=== PATIENT | female | born 1940 | race Caucasian/White ===

== ENCOUNTER → 2016-05-07 | Outpatient (CLI) | payer OTHER ==
[~2016-05-07] MED LIST: ALEN1TAB21 PO; AMB5 PO; AMLH550 PO; AMOX500C3 PO; ASPEC325 PO; BIOT1CAP8 PO; CLB200 PO; LEVO125T72 PO; MULT-506 PO; SIMV20TA2 PO; [UNRECOGNIZED DRUG - OTHER] PO
[2016-05-07 13:19] LABS: URINE APPEARANCE CLEAR (CLEAR); URINE BILIRUBIN NEG (NEG); URINE COLOR YELLOW; URINE EPITHELIAL CELL AUTO >30 /lpf (0-5); URINE NITRITE POS (NEG); URINE SPECIFIC GRAVITY 1.021 (1.000-1.030); UROBILINOGEN NEG (NEG)
[2016-05-07 13:33] LABS: MANUAL MICROSCOPIC REQUIRED? NO; REVIEW REQ? NO
== END | disposition home or self-care (01) ==
LOC: C.LAB1850 11:47
PROVIDERS: ATTEND Internal Medicine Infectious Disease
DX: R30.0 Dysuria (principal)

== ENCOUNTER → 2016-09-29 | Outpatient (CLI) | payer OTHER ==
--- NOTE | 2016-09-29 16:08 | MAMMOGRAPHY REPORT ---
BILATERAL DIGITAL SCREENING MAMMOGRAM WITH CAD: 09/29/2016 CLINICAL HISTORY: Routine screening. Patient has no complaints. TECHNIQUE: Current study was also evaluated with a Computer Aided Detection (CAD) system. Bilateral CC and MLO views were obtained. COMPARISON: Comparison is made to exams dated: 09/24/2015 mammogram, 09/18/2014 mammogram, 09/05/2013 ma mmogram, 09/04/2012 mammogram, 09/01/2011 mammogram, and 08/25/2010 mammogram - [facility] ter. BREAST COMPOSITION: The tissue of both breasts is almost entirely fatty. FINDINGS: No suspicious masses, calcifications, or areas of architectural distortion are noted in ei ther breast. There has been no significant interval change compared to prior exams. Postsurgical cassandra nges are again noted from bilateral reduction mammoplasty. Bilateral benign-appearing calcifications are not significantly changed. A biopsy marker clip is again noted within the left upper inner quad rant. IMPRESSION: ACR BI-RADS CATEGORY 2: BENIGN There is no mammographic evidence of malignancy. A 1 year screening mammogram is recommended. The pa tient will receive written notification of the results. Approximately 10% of breast cancers are not detected with mammography. A negative mammographic report should not delay biopsy if a clinically suggestive mass is present. Renee Wheat M.D. /:09/29/2016 13:27:05 Gang Punch Operator: Zuly KEVIN(Mac)(Julio)(BD), [facility] letter sent: Normal 1/2 BI-RADS Code: ACR BI-RADS Category 2: Benign
== END | disposition home or self-care (01) ==
LOC: C.MAMM 09:55
PROVIDERS: ATTEND Family Medicine
DX: Z12.31 Encounter for screening mammogram for malignant neoplasm of breast (principal)

== ENCOUNTER 2022-07-09 11:22 | Inpatient (IN) ==
[2022-07-09] MEDS ORDERED: MECLIZINE HCL 25 MG TAB PO STA (11:32)
[2022-07-09] MEDS ORDERED: ONDANSETRON INJ 2 MG/ML 2 ML VIAL IV STA (11:32)
--- NOTE | 2022-07-09 11:35 | Emergency Department Note ---
Impression & Plan UTI (urinary tract infection), uncomplicated, HTN (hypertension), Dizziness ED Provider Note NAME: AVERY MCKEON AGE: 81 SEX: F : 1940 ARRIVES VIA: Ambulance INFORMANT: Patient ED PROVIDER(S): Jim Buckley DO CHIEF COMPLAINT: dizzy HPI: Patient is an 81-year-old female with past medical history of hypertension who presents to the ER for dizziness. She notes she has an upset stomach on Tuesday. Yesterday she felt very dizzy and today she started vomiting. She notes the dizziness is worse with movement of her head and resolves when she stays still. She denies any belly pain. No headache. No change in vision. She did have cataract surgery performed on Tuesday. Denies any chest pain or shortness of breath. No dysuria, urgency, or frequency. She notes that she cannot walk because she felt so weak and dizzy so she called EMS. PAST MEDICAL HISTORY:See Below PAST SURGICAL HISTORY:See Below FAMILY HISTORY:See Below SOCIAL HISTORY:See Below HOME MEDICATIONS:See Below ALLERGIES:See Below VITALS:See Below PHYSICAL EXAMINATION: GENERAL: Sitting up in bed, alert, well appearing, well nourished, no distress, non-toxic EYE EXAM: normal conjunctiva. PERRL and EOM's intact. OROPHARYNX: no exudate, no erythema, lips, buccal mucosa, and tongue normal and mucous membranes are moist NECK: supple, no nuchal rigidity, no adenopathy, non-tender LUNGS: Clear to auscultation. Normal chest wall mechanics HEART: no murmurs, S1 normal and S2 normal ABDOMEN: abdomen soft, non-tender, normo-active bowel sounds, no masses, no rebound or guarding. UPPER EXTREMITIES: upper extremities are grossly normal. LOWER EXTREMITIES: No pitting edema. NEURO EXAM: Normal sensorium, cranial nerves II-XII intact, normal speech, no weakness of arms, no weakness of legs. No drift. Finger to nose intact. Gross sensation intact. MEDICAL DECISION MAKING: Patient is an 81-year-old female who presents ER for above-stated complaint. IV was established blood work was obtained. Labs show a leukocytosis of 13,000. No significant anemia. BMP with mild hypokalemia 3.2. Glucose slightly elevated at 165. LFTs bilirubin and troponin was negative. Lipase was clean. UA does show nitrates leuks whites and +4 bacteria. Patient was given IV Rocephin. She was given IV fluids. She was given Reglan as well. CT angios of the head and neck were negative. She denies any belly pain with the exception of nausea. Chest x-ray was clean. Patient was admitted to the hospitalist for further evaluation management treatment. Discussed with the hospitalist and care managers for further evaluation management treatment. Do favor that the dizziness is likely peripheral in nature and could be related to the urinary tract infection. Considered stone but she had no belly pain suggest this. Triage Nursing notes reviewed. Limited review of prior medical records performed Vital Signs: reviewed and remarkable for no significant abnormalities Differential diagnosis: Differential diagnosis includes etiologies such as benign positional vertigo, dehydration, hypovolemia, anemia, tumor, infection, hypoglycemia, electrolyte abnormalities, cardiac sources, intracerebral event, toxicologic, neurological, as well as others were entertained. ER treatment provided: See below Diagnostics interpreted by me include EKG and cardiac monitoring as listed below: -Cardiac Monitoring: An order was placed for continuous cardiac monitoring. The monitor shows a rate of 80 with sinus rhythm. -ECG: EKG was ordered but patient was transferred to the floor prior to being obtained in the ER. -Laboratory studies:Interpreted by me as stated above in MDM and shown below. Imaging studies: Xrays: As interpreted by me: Portable AP upright 1 view of the chest shows no focal infiltrate CTs show: CT angios of the head and neck were negative Consultation(s): As described in MDM Procedures:none Critical Care: None Past Med/Surg History Medical History (Updated 07/09/22 @ 16:01 by Jim Buckley DO) Asthma no inhalers currently d/t insurance issues. rarely has any problems. History of COVID-19 04/01/22 tested positive. loss of taste and smell, fatigue, headache, sore throat, cough> still has fatigue and the loss of taste altered loss of smell. 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) Sleep apnea does not wear a machine Surgical History (Updated 07/09/22 @ 14:25 by Holly Burton PA-C) H/O bilateral breast reduction surgery History of cataract surgery LEFT & Right spring 2022 History of hip replacement, total bilateral History of tonsillectomy S/P knee replacement left Family History Other Heart disease Lung cancer No family history of adverse response to anesthesia Social History Smoking Status: Never smoker Second Hand Exposure: No; Hx Alcohol Use: No Hx Substance Use: No Preferred Language: Welsh Communication Ability: Effective 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 Beliefs That Will Affect Care: None Current Living Situation: Alone Feels Safe at Home: Yes Assistive Devices: Glasses Allergies Allergies Allergy/AdvReac Type Severity Reaction Status Date / Time No Known Allergies Allergy Unknown Verified 07/07/22 06:14 Home Meds Home Medications Medication Instructions Recorded Confirmed amlodipine 5 mg tablet 5 mg PO QAM 06/23/22 07/09/22 biotin 1 mg tablet 1 mg PO QAM 06/23/22 07/09/22 hydrochlorothiazide 25 mg tablet 25 mg PO QAM 06/23/22 07/09/22 ibuprofen 200 mg-diphenhydramine 2 cap PO HS PRN Insomnia 06/23/22 07/09/22 HCl 25 mg capsule (Ibuprofen PM) levothyroxine 137 mcg tablet 137 mcg PO QAM 06/23/22 07/09/22 losartan 50 mg tablet 50 mg PO QAM 06/23/22 07/09/22 multivitamin 1 tab PO QAM 06/23/22 07/09/22 simvastatin 20 mg tablet 20 mg PO HS 06/23/22 07/09/22 vitamin C 500 mg-quercetin 250 1 cap PO QAM 06/23/22 07/09/22 mg-bioflavonoids, citrus 33 mg capsule (Quercetin Complex) ofloxacin 0.3 % eye drops 1 drp OPR QID 07/09/22 07/09/22 prednisolone acetate 1 % eye 1 drp QID 07/09/22 07/09/22 drops,suspension zolpidem 5 mg tablet 5 mg PO HS yes 07/09/22 07/09/22 Results & Data (ED) Vital Signs Vital Signs - 24 hr 07/09/22 11:27 07/09/22 11:53 07/09/22 12:03 Temperature 36.4 C L Temperature Source Oral Pulse Rate 63 65 Pulse Rate [Apical] 64 Pulse Rate from SpO2 Sensor Respiratory Rate 13 21 14 Respiratory Effort / Characteristics Non-Labored Spontaneous Non-Labored Spontaneous Respiratory Depth Normal Normal Blood Pressure 224/85 H Blood Pressure [Right Arm] 209/97 H Blood Pressure Mean 131 Blood Pressure Mean [Right Arm] 134 Pulse Oximetry 93 96 96 Oxygen Delivery Method Room Air Room Air Room Air Sepsis New/Unexplained Change in Mental Status N/A Sepsis Action Taken by Nursing No Action Required 07/09/22 12:22 07/09/22 12:34 07/09/22 13:17 Temperature Temperature Source Pulse Rate 68 85 86 Pulse Rate [Apical] Pulse Rate from SpO2 Sensor 87 Respiratory Rate 24 22 Respiratory Effort / Characteristics Respiratory Depth Blood Pressure 193/89 H 180/99 H Blood Pressure [Right Arm] Blood Pressure Mean 123 126 Blood Pressure Mean [Right Arm] Pulse Oximetry 96 97 Oxygen Delivery Method Room Air Room Air Sepsis New/Unexplained Change in Mental Status Sepsis Action Taken by Nursing 07/09/22 13:30 07/09/22 14:01 07/09/22 14:30 Temperature Temperature Source Pulse Rate 81 82 84 Pulse Rate [Apical] Pulse Rate from SpO2 Sensor 81 83 84 Respiratory Rate 20 19 22 Respiratory Effort / Characteristics Respiratory Depth Blood Pressure 180/90 H 173/108 H 184/95 H Blood Pressure [Right Arm] Blood Pressure Mean 120 129 124 Blood Pressure Mean [Right Arm] Pulse Oximetry 98 97 97 Oxygen Delivery Method Room Air Room Air Room Air Sepsis New/Unexplained Change in Mental Status Sepsis Action Taken by Nursing 07/09/22 15:00 07/09/22 15:30 07/09/22 16:00 Temperature Temperature Source Pulse Rate 79 77 81 Pulse Rate [Apical] Pulse Rate from SpO2 Sensor 79 77 81 Respiratory Rate 18 17 20 Respiratory Effort / Characteristics Respiratory Depth Blood Pressure 176/68 H 179/81 H 168/81 H Blood Pressure [Right Arm] Blood Pressure Mean 104 113 110 Blood Pressure Mean [Right Arm] Pulse Oximetry 93 95 96 Oxygen Delivery Method Room Air Room Air Room Air Sepsis New/Unexplained Change in Mental Status Sepsis Action Taken by Nursing Laboratory Data 07/09/22 11:34 07/09/22 11:34 Lab Results 07/09/22 07/09/22 07/09/22 Range/Units 11:34 11:34 12:51 WBC 13.44 H (4.8-10.8) K/ul RBC 4.61 (4.20-5.40) M/uL Hgb 14.9 (12.0-16.0) g/dl Hct 43.4 (37.0-47.0) % MCV 94.1 (80.0-100.0) fL MCH 32.3 (25.0-34.0) pg MCHC 34.3 (32.0-36.0) g/dL RDW Std Deviation 42.2 (36.4-46.3) fL RDW Coeff of Edson 12.1 (11.5-14.5) % Plt Count 167 (130-400) K/uL MPV 11.7 (9.4-12.4) fL Immature Gran % (Auto) 0.4 % Neut % (Auto) 84.3 % Lymph % (Auto) 10.1 % [place] % (Auto) 5.1 % Eos % (Auto) 0.0 % Baso % (Auto) 0.1 % Neut # (Auto) 11.31 H (1.40-6.50) K/uL Lymph # (Auto) 1.36 (1.2-3.4) K/uL [place] # (Auto) 0.69 H (0.11-0.59) K/uL Eos # (Auto) 0.00 (0-0.50) K/uL Baso # (Auto) 0.02 (0-0.2) K/uL Immature Gran # (Auto) 0.06 (0.01-0.20) K/uL Sodium 139 (136-145) mmol/L Potassium 3.2 L (3.5-5.1) mmol/L Chloride 101 (98-107) mmol/L Carbon Dioxide 24 (21-32) mmol/L Anion Gap 14 H (3-11) BUN 23 (6-23) mg/dl Creatinine 0.58 L (0.6-1.2) mg/dl Est Cr Clr Drug Dosing 94.2 ml/min Est GFR ( Amer) 98.8 ml/min Est GFR (Non-Af Amer) 85.2 ml/min BUN/Creatinine Ratio 39.7 H (10-20) Glucose 165 H (70-99(Fasting)) mg/dl Calcium 9.8 (8.6-10.3) mg/dl Total Bilirubin 0.6 (0.2-1.0) mg/dl AST 39 (13-39) U/L ALT 54 H (7-52) U/L Alkaline Phosphatase 62 (34-104) U/L Troponin I High Sens 11.5 (0-14) pg/ml Total Protein 7.5 (6.0-8.3) gm/dl Albumin 4.5 (3.4-5.0) gm/dl Globulin 3.0 (2.5-4.0) gm/dl Albumin/Globulin Ratio 1.5 (0.9-2) Lipase 20 (11-82) U/L Urine Color Yellow Urine Appearance Cloudy A (Clear) Urine pH 6.0 (4.5-7.5) Ur Specific [place] 1.029 (1.000-1.030) Urine Protein Trace H (Negative) Urine Glucose (UA) Negative (Negative) Urine Ketones 1+ H (Negative) Urine Blood Trace H (Negative) Urine Nitrite Positive A (Negative) Urine Bilirubin Negative (Negative) Urine Urobilinogen Negative (Negative) Ur Leukocyte Esterase 2+ H (Negative) Urine WBC (Auto) >30 H (0-5) /hpf Urine RBC (Auto) 5-10 H (0-4) /hpf U Hyaline Cast (Auto) 1-5 (0-5) /lpf U Epithel Cells (Auto) 10-20 H (0-5) /lpf Urine Bacteria (Auto) 4+ H (Negative) SARS-CoV-2, RNA, NAAT (NEGATIVE) 07/09/22 Range/Units 13:51 WBC (4.8-10.8) K/ul RBC (4.20-5.40) M/uL Hgb (12.0-16.0) g/dl Hct (37.0-47.0) % MCV (80.0-100.0) fL MCH (25.0-34.0) pg MCHC (32.0-36.0) g/dL RDW Std Deviation (36.4-46.3) fL RDW Coeff of Edson (11.5-14.5) % Plt Count (130-400) K/uL MPV (9.4-12.4) fL Immature Gran % (Auto) % Neut % (Auto) % Lymph % (Auto) % [place] % (Auto) % Eos % (Auto) % Baso % (Auto) % Neut # (Auto) (1.40-6.50) K/uL Lymph # (Auto) (1.2-3.4) K/uL [place] # (Auto) (0.11-0.59) K/uL Eos # (Auto) (0-0.50) K/uL Baso # (Auto) (0-0.2) K/uL Immature Gran # (Auto) (0.01-0.20) K/uL Sodium (136-145) mmol/L Potassium (3.5-5.1) mmol/L Chloride (98-107) mmol/L Carbon Dioxide (21-32) mmol/L Anion Gap (3-11) BUN (6-23) mg/dl Creatinine (0.6-1.2) mg/dl Est Cr Clr Drug Dosing ml/min Est GFR ( Amer) ml/min Est GFR (Non-Af Amer) ml/min BUN/Creatinine Ratio (10-20) Glucose (70-99(Fasting)) mg/dl Calcium (8.6-10.3) mg/dl Total Bilirubin (0.2-1.0) mg/dl AST (13-39) U/L ALT (7-52) U/L Alkaline Phosphatase (34-104) U/L Troponin I High Sens (0-14) pg/ml Total Protein (6.0-8.3) gm/dl Albumin (3.4-5.0) gm/dl Globulin (2.5-4.0) gm/dl Albumin/Globulin Ratio (0.9-2) Lipase (11-82) U/L Urine Color Urine Appearance (Clear) Urine pH (4.5-7.5) Ur Specific [place] (1.000-1.030) Urine Protein (Negative) Urine Glucose (UA) (Negative) Urine Ketones (Negative) Urine Blood (Negative) Urine Nitrite (Negative) Urine Bilirubin (Negative) Urine Urobilinogen (Negative) Ur Leukocyte Esterase (Negative) Urine WBC (Auto) (0-5) /hpf Urine RBC (Auto) (0-4) /hpf U Hyaline Cast (Auto) (0-5) /lpf U Epithel Cells (Auto) (0-5) /lpf Urine Bacteria (Auto) (Negative) SARS-CoV-2, RNA, NAAT NEGATIVE (NEGATIVE) Administered Medications Discontinued Medications Amlodipine Besylate (Amlodipine Besylate 5 Mg Tab) 5 mg PO NOW ONE Stop: 07/09/22 14:01 Last Admin: 07/09/22 14:07 Dose: 5 mg Documented By: RAMON Hydralazine HCl (Hydralazine Hcl 20 Mg/Ml Vial) 10 mg IV NOW STA Stop: 07/09/22 12:08 Last Admin: 07/09/22 12:13 Dose: 10 mg Documented By: MIGUEL Hydrochlorothiazide (Hydrochlorothiazide 25 Mg Tab) 25 mg PO NOW STA Stop: 07/09/22 13:50 Last Admin: 07/09/22 14:07 Dose: 25 mg Documented By: RAMON Ceftriaxone Sodium (Rocephin) 2,000 mg in 70 mls @ 140 mls/hr IV NOW STA Stop: 07/09/22 13:48 Last Infusion: 07/09/22 14:52 Dose: 0 mls/hr Documented By: Admin: 07/09/22 13:51 Dose: 140 mls/hr Documented By: RAMON Ioversol (Optiray 320 500ml) 102 ml IV ONCE ONE Stop: 07/09/22 12:32 Last Admin: 07/09/22 12:32 Dose: 102 ml Documented By: ABHI Losartan Potassium (Losartan Potassium 50 Mg Tab) 50 mg PO ONE ONE Stop: 07/09/22 14:01 Last Admin: 07/09/22 14:07 Dose: 50 mg Documented By: RAMON Meclizine HCl (Meclizine Hcl 25 Mg Tab) 25 mg PO NOW STA Stop: 07/09/22 11:33 Last Admin: 07/09/22 11:49 Dose: 25 mg Documented By: RMAON Metoclopramide HCl (Metoclopramide Hcl Inj 5 Mg/Ml 2 Ml Vial) 10 mg IV NOW STA Stop: 07/09/22 13:26 Last Admin: 07/09/22 13:52 Dose: 10 mg Documented By: RAMON Ondansetron HCl (Ondansetron Inj 2 Mg/Ml 2 Ml Vial) 4 mg IV NOW STA Stop: 07/09/22 11:33 Last Admin: 07/09/22 11:49 Dose: 4 mg Documented By: RAMON Potassium Chloride (Potassium Chloride Crtab 20 Meq Tabcr) 40 meq PO NOW STA Stop: 07/09/22 13:53 Last Admin: 07/09/22 14:07 Dose: 40 meq Documented By: [facility] Imaging Data Radiologist's Impression: Neck CTA 07/09/22 11:32 CT angio neck with con, CT angio head wo/w CLINICAL HISTORY: dizzy TECHNIQUE: Contiguous axial CT images of the head were acquired from the base of the skull to the vertex without intravenous contrast administration. CT angiography of the head and neck was performed following intravenous administration of iodinated contrast. Coronal and sagittal MIPS were obtained from the axial data set and were submitted for review. Automated dose lowering techniques and/or adjustment according to patient size were utilized for this examination. All measurements were calculated based on NASCET criteria. CT DOSE: 1264.08 mGy.cm Comparison: None available at the time of this dictation. FINDINGS: CT head: There is no acute intracranial hemorrhage or evidence of acute territorial infarction. No shift of the midline structures, mass effect, or extra-axial abnormalities are shown. Mucous retention cyst is in the left maxillary sinus. Lungs and soft tissues are unremarkable. CTA Neck: Direct origin of the left vertebral artery from the aortic arch is seen. There is no significant atherosclerotic plaque in the aortic arch or the origins of the innominate, left common carotid, and left subclavian arteries. The common carotid, external carotid, cervical segments of the internal carotid arteries, and the cervical segments of the vertebral arteries are patent without hemodynamically significant stenosis. The right vertebral artery is dominant. CTA Head: The anterior and posterior cerebral circulations are patent. origin of the right posterior cerebral artery is seen. IMPRESSION: 1. No acute intracranial hemorrhage, evidence of acute territorial infarction, or other acute intracranial disease process. 2. No occlusion, hemodynamically significant stenosis, or dissection in the alisa or cervical arteries. 3. No occlusion, hemodynamically significant stenosis, aneurysm, dissection, or arteriovenous malformation in the major intracranial arteries. Assessment of stenosis of the internal carotid arteries is based on NASCET criteria. ACT 112: Negative or not required by law. Electronically signed by: Luis Wynn M.D. 07/09/2022 12:45 PM Head CTA 07/09/22 11:42 CT angio neck with con, CT angio head wo/w CLINICAL HISTORY: dizzy TECHNIQUE: Contiguous axial CT images of the head were acquired from the base of the skull to the vertex without intravenous contrast administration. CT angiography of the head and neck was performed following intravenous administration of iodinated contrast. Coronal and sagittal MIPS were obtained from the axial data set and were submitted for review. Automated dose lowering techniques and/or adjustment according to patient size were utilized for this examination. All measurements were calculated based on NASCET criteria. CT DOSE: 1264.08 mGy.cm Comparison: None available at the time of this dictation. FINDINGS: CT head: There is no acute intracranial hemorrhage or evidence of acute ter ritorial infarction. No shift of the midline structures, mass effect, or extra- axial abnormalities are shown. Mucous retention cyst is in the left maxillary sinus. Lungs and soft tissues are unremarkable. CTA Neck: Direct origin of the left vertebral artery from the aortic arch is seen. There is no significant atherosclerotic plaque in the aortic arch or the origins of the innominate, left common carotid, and left subclavian arteries. The common carotid, external carotid, cervical segments of the internal carotid arteries, and the cervical segments of the vertebral arteries are patent without hemodynamically significant stenosis. The right vertebral artery is dominant. CTA Head: The anterior and posterior cerebral circulations are patent. origin of the right posterior cerebral artery is seen. IMPRESSION: 1. No acute intracranial hemorrhage, evidence of acute territorial infarction, or other acute intracranial disease process. 2. No occlusion, hemodynamically significant stenosis, or dissection in the major cervical arteries. 3. No occlusion, hemodynamically significant stenosis, aneurysm, dissection, or arteriovenous malformation in the major intracranial arteries. Assessment of stenosis of the internal carotid arteries is based on NASCET criteria. ACT 112: Negative or not required by law. Electronically signed by: Luis Wynn M.D. 07/09/2022 12:45 PM Chest X-Ray 07/09/22 12:48 XR chest 1V portable CLINICAL HISTORY: dizzy TECHNIQUE: Single frontal radiograph of the chest was obtained. Comparison: Comparison is made to chest radiograph 11/30/2013 FINDINGS: Exam is limited by underpenetration. Cardiomegaly is noted. The aortic arch is calcified. The lungs are clear. No evidence of pleural effusion or pneumothorax. IMPRESSION: No acute chest disease. ACT 112: Negative or not required by law. Electronically signed by: Luis Wynn M.D. 07/09/2022 1:13 PM Discharge Plan Visit Data Chief Complaint: Illness Stated Complaint: WEAKNESS, NAUSEA, VOMITING, UNABLE TO AMBULATE ED Provider: Jim Buckley Discharge Problem: UTI (urinary tract infection), uncomplicated, HTN (hypertension), Dizziness Discharge Instructions Interventions: ED Discharge Assessment Last Done: 07/09/22 16:10 Forms Stand Alone Forms: My [facility] Prescriptions Prescriptions: No Action losartan 50 mg Tablet 50 mg PO QAM levothyroxine 137 mcg Tablet 137 mcg PO QAM amlodipine 5 mg Tablet 5 mg PO QAM simvastatin 20 mg Tablet 20 mg PO HS hydrochlorothiazide 25 mg Tablet 25 mg PO QAM biotin 1 mg Tablet 1 mg PO QAM Ibuprofen PM 200-25 mg Capsule 2 cap PO HS PRN (Reason: Insomnia) multivitamin Tablet 1 tab PO QAM Quercetin Complex 500-250-33 mg Capsule 1 cap PO QAM zolpidem 5 mg tablet 5 mg PO HS MDD insomnia ofloxacin 0.3 % drops 1 drp OPR QID prednisolone acetate 1 % drops,suspension 1 drp QID Referrals Referrals: Joseph Iqbal MD [Primary Care Provider] -
[2022-07-09 11:48] LABS: Basophils # (auto) 0.02 K/uL (0-0.2); Basophils % (auto) 0.1 %; Hematocrit (blood only) 43.4 % (37.0-47.0); Hemoglobin 14.9 g/dl (12.0-16.0); Immature Granulocytes # (auto) 0.06 K/uL (0.01-0.20); Immature Granulocytes % (auto) 0.4 %; Lymphocytes # (auto) 1.36 K/uL (1.2-3.4); Lymphocytes % (auto) 10.1 %; Mean Corpuscular Hemoglobin 32.3 pg (25.0-34.0); Mean Corpuscular Hgb Conc 34.3 g/dL (32.0-36.0); Mean Corpuscular Volume 94.1 fL (80.0-100.0); Mean Platelet Volume 11.7 fL (9.4-12.4); Monocytes # (auto) 0.69 K/uL (0.11-0.59); Monocytes % (auto) 5.1 %; Neutrophils # (auto) 11.31 K/uL (1.40-6.50); Neutrophils % (auto) 84.3 %; Platelet Count 167 K/uL (130-400); RDW Coefficient of Variation 12.1 % (11.5-14.5); RDW Standard Deviation 42.2 fL (36.4-46.3); Red Blood Count 4.61 M/uL (4.20-5.40); White Blood Count 13.44 K/ul (4.8-10.8)
[2022-07-09 12:03] LABS: Albumin Globulin Ratio 1.5 (0.9-2); Albumin Level 4.5 gm/dl (3.4-5.0); BUN Creatinine Ratio 39.7 (10-20); Bilirubin,Total 0.6 mg/dl (0.2-1.0); Calcium 9.8 mg/dl (8.6-10.3); Creatinine Clr Calc Pharmacy 94.2 ml/min; Est GFR (African American) 98.8 ml/min; Est GFR (Non-African American) 85.2 ml/min; Potassium 3.2 mmol/L (3.5-5.1); Total Protein 7.5 gm/dl (6.0-8.3)
[2022-07-09] MEDS ORDERED: hydrALAZINE HCL 20 MG/ML VIAL IV STA (12:07)
[2022-07-09] MEDS ORDERED: OPTIRAY 320 500ml IV ONE (12:31)
--- NOTE | 2022-07-09 12:46 | CT Scan Report ---
CT angio neck with con, CT angio head wo/w CLINICAL HISTORY: dizzy TECHNIQUE: Contiguous axial CT images of the head were acquired from the base of the skull to the boaz juan manuel without intravenous contrast administration. CT angiography of the head and neck was performed f ollowing intravenous administration of iodinated contrast. Coronal and sagittal MIPS were obtained fr om the axial data set and were submitted for review. Automated dose lowering techniques and/or adjus tment according to patient size were utilized for this examination. All measurements were calculated based on NASCET criteria. CT DOSE: 1264.08 mGy.cm Comparison: None available at the time of this dictation. FINDINGS: CT head: There is no acute intracranial hemorrhage or evidence of acute territorial infarction. No sh ift of the midline structures, mass effect, or extra-axial abnormalities are shown. Mucous retention cyst is in the left maxillary sinus. Lungs and soft tissues are unremarkable. CTA Neck: Direct origin of the left vertebral artery from the aortic arch is seen. There is no signi ficant atherosclerotic plaque in the aortic arch or the origins of the innominate, left common caroti d, and left subclavian arteries. The common carotid, external carotid, cervical segments of the inte rnal carotid arteries, and the cervical segments of the vertebral arteries are patent without hemodyn amically significant stenosis. The right vertebral artery is dominant. CTA Head: The anterior and posterior cerebral circulations are patent. origin of the right pos terior cerebral artery is seen. IMPRESSION: 1. No acute intracranial hemorrhage, evidence of acute territorial infarction, or other acute intrac ranial disease process. 2. No occlusion, hemodynamically significant stenosis, or dissection in the major cervical arteries. 3. No occlusion, hemodynamically significant stenosis, aneurysm, dissection, or arteriovenous malfor mation in the major intracranial arteries. Assessment of stenosis of the internal carotid arteries is based on NASCET criteria. ACT 112: Negative or not required by law. Electronically signed by: Luis Wynn M.D. 07/09/2022 12:45 PM
[2022-07-09 13:10] LABS: Appearance Urine Cloudy (Clear); Bacteria Urine Automated 4+ (Negative); Bilirubin Urine Negative (Negative); Blood Urine Trace (Negative); Color Urine Yellow; Glucose Urine UA Negative (Negative); Ketones Urine 1+ (Negative); Leukocyte Esterase Urine 2+ (Negative); Nitrite Urine Positive (Negative); Protein Urine Trace (Negative); Specific Gravity Urine 1.029 (1.000-1.030); Urobilinogen Urine Negative (Negative); WBC Urine Automated >30 /hpf (0-5)
--- NOTE | 2022-07-09 13:14 | XRay Report ---
XR chest 1V portable CLINICAL HISTORY: dizzy TECHNIQUE: Single frontal radiograph of the chest was obtained. Comparison: Comparison is made to chest radiograph 11/30/2013 FINDINGS: Exam is limited by underpenetration. Cardiomegaly is noted. The aortic arch is calcified. The lungs a re clear. No evidence of pleural effusion or pneumothorax. IMPRESSION: No acute chest disease. ACT 112: Negative or not required by law. Electronically signed by: Luis Wynn M.D. 07/09/2022 1:13 PM
[2022-07-09] MEDS ORDERED: cefTRIAXone SODIUM 2,000 MG/70 ML BAG IV STA (13:19)
[2022-07-09 13:25] LABS: Troponin I High Sensitivity 11.5 pg/ml (0-14)
[2022-07-09] MEDS ORDERED: METOCLOPRAMIDE HCL INJ 5 MG/ML 2 ML VIAL IV STA (13:25)
--- NOTE | 2022-07-09 13:36 | History & Physical Report ---
Date of Service July 09, 2022 Assessment & Plan (1) Hypertensive urgency: (2) Dizziness: Plan: This is an 81-year-old female with PMH of hypertension, insomnia, prediabetes, hypothyroidism, hyperlipidemia and LEON who presents with nausea and dizziness x3 days. Starting on Tuesday, patient felt nauseated and generally weak as well as dizziness and was found to have hypertensive urgency and UTI. Initial BP 224/85 in setting of missed PO meds, ongoing N/V at home. Generalized weakness only; no focal weakness, speech or swallowing issues CTA head/neck without acute evidence of 1. No acute intracranial hemorrhage, evidence of acute territorial infarction, or other acute intracranial disease process. 2. No occlusion, hemodynamically significant stenosis, or dissection in the major cervical arteries. 3. No occlusion, hemodynamically significant stenosis, aneurysm, dissection, or arteriovenous malformation in the major intracranial arteries. BP improving with 10mg IV hydralazine given in ED, also given missed AM amlodipine, hctz and losartain with improvement to 180/90 Continue to monitor BP closely (3) UTI (urinary tract infection), uncomplicated: Plan: Generalized weakness and nausea, increased urinary frequency. Continue empiric Rocephin. Follow urine culture (4) Hypokalemia: Plan: K 3.2 initially, replaced. Will repeat this evening since hctz given (5) History of cataract surgery: Plan: L cataract last week, R 2 day ago. Continue eye drops QID (6) Hypothyroidism: Plan: Continue levothyroxine (7) Hyperlipidemia: Plan: Continue statin (8) Sleep apnea: Plan: Does not use CPAP at home DVT Ppx: SQ lovenox Code status: FULL PCP: Farida Dispo: Admitted to PCU Patient seen in collaboration with Dr. Díaz. Please see addendum. I spent a total of 75 minutes coordinating, documenting, and providing care for this patient excluding time spent in the performance of separately billed services. History of Present Illness Chief Complaint: nauseous Primary Care Provider: Joseph Iqbal MD This is an 81-year-old female with PMH of hypertension, insomnia, prediabetes, hypothyroidism, hyperlipidemia and LEON who presents with nausea and dizziness x3 days. Starting on Tuesday, patient felt nauseated and generally weak as well as dizziness. Had R cataract surgery Wednesday AM and felt the same. Vomiting last evening multiple times and when she stands up the room is spinning, which is new for her. Vomited food contents, no blood. No fever, chills, CP, SOB, abdominal pain, diarrhea or constipation. Decreased PO intake 2/2 nausea. No difficulty urinating but more frequent, dysuria or hematuria. Has not taken home medications since yesterday morning. Is taking 2 eye drops for recent cataract surgeries (R 2 days ago and L last week). Allergies Allergy/AdvReac Type Severity Reaction Status Date / Time No Known Allergies Allergy Unknown Verified 07/07/22 06:14 Home Medications Medication Instructions Recorded Confirmed Type amlodipine 5 mg tablet 5 mg PO QAM 06/23/22 07/09/22 History biotin 1 mg tablet 1 mg PO QAM 06/23/22 07/09/22 History hydrochlorothiazide 25 mg tablet 25 mg PO QAM 06/23/22 07/09/22 History ibuprofen 200 mg-diphenhydramine 2 cap PO HS PRN Insomnia 06/23/22 07/09/22 History HCl 25 mg capsule (Ibuprofen PM) levothyroxine 137 mcg tablet 137 mcg PO QAM 06/23/22 07/09/22 History losartan 50 mg tablet 50 mg PO QAM 06/23/22 07/09/22 History multivitamin 1 tab PO QAM 06/23/22 07/09/22 History simvastatin 20 mg tablet 20 mg PO HS 06/23/22 07/09/22 History vitamin C 500 mg-quercetin 250 1 cap PO QAM 06/23/22 07/09/22 History mg-bioflavonoids, citrus 33 mg capsule (Quercetin Complex) ofloxacin 0.3 % eye drops 1 drp OPR QID 07/09/22 07/09/22 History prednisolone acetate 1 % eye 1 drp QID 07/09/22 07/09/22 History drops,suspension zolpidem 5 mg tablet 5 mg PO HS yes 07/09/22 07/09/22 History Past Med/Surg History Medical History (Updated 07/09/22 @ 16:01 by Jim Buckley DO) Asthma no inhalers currently d/t insurance issues. rarely has any problems. History of COVID-19 04/01/22 tested positive. loss of taste and smell, fatigue, headache, sore throat, cough> still has fatigue and the loss of taste altered loss of smell. 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) Sleep apnea does not wear a machine Surgical History (Updated 07/09/22 @ 14:25 by Holly Burton PA-C) H/O bilateral breast reduction surgery History of cataract surgery LEFT & Right spring 2022 History of hip replacement, total bilateral History of tonsillectomy S/P knee replacement left Family History Other Heart disease Lung cancer No family history of adverse response to anesthesia Social History Smoking Status: Never smoker Second Hand Exposure: No; Hx Alcohol Use: No Hx Substance Use: No Preferred Language: [place] Communication Ability: Effective 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 Physical Exam Physical Exam: Please see Dr. Díaz's addendum for physical exam. Results & Data Results & Data Vital Signs (Past 12 Hours) Vital Signs Temp Pulse Pulse Resp BP BP Pulse Ox 07/09/22 12:22 68 07/09/22 12:03 64 14 209/97 H 96 07/09/22 11:53 65 21 96 07/09/22 11:27 36.4 C L 63 13 224/85 H 93 O2 Del Method 07/09/22 12:22 07/09/22 12:03 Room Air 07/09/22 11:53 Room Air 07/09/22 11:27 Room Air Laboratory Results Short CBC 07/09/22 Range/Units 11:34 WBC 13.44 H (4.8-10.8) K/ul Hgb 14.9 (12.0-16.0) g/dl Hct 43.4 (37.0-47.0) % Plt Count 167 (130-400) K/uL BMP 07/09/22 11:34 Sodium 139 Potassium 3.2 L Chloride 101 Carbon Dioxide 24 BUN 23 Creatinine 0.58 L Glucose 165 H Calcium 9.8 Liver Function 07/09/22 Range/Units 11:34 Total Bilirubin 0.6 (0.2-1.0) mg/dl AST 39 (13-39) U/L ALT 54 H (7-52) U/L Alkaline Phosphatase 62 (34-104) U/L Albumin 4.5 (3.4-5.0) gm/dl Urine 07/09/22 Range/Units 12:51 Urine Color Yellow Urine Appearance Cloudy A (Clear) Urine pH 6.0 (4.5-7.5) Ur Specific [place] 1.029 (1.000-1.030) Urine Protein Trace H (Negative) Urine Glucose (UA) Negative (Negative) Diagnostic Findings Neck CTA 07/09/22 11:32 CT angio neck with con, CT angio head wo/w CLINICAL HISTORY: dizzy TECHNIQUE: Contiguous axial CT images of the head were acquired from the base of the skull to the vertex without intravenous contrast administration. CT angiography of the head and neck was performed following intravenous administration of iodinated contrast. Coronal and sagittal MIPS were obtained from the axial data set and were submitted for review. Automated dose lowering techniques and/or adjustment according to patient size were utilized for this examination. All measurements were calculated based on NASCET criteria. CT DOSE: 1264.08 mGy.cm Comparison: None available at the time of this dictation. FINDINGS: CT head: There is no acute intracranial hemorrhage or evidence of acute territorial infarction. No shift of the midline structures, mass effect, or extra-axial abnormalities are shown. Mucous retention cyst is in the left maxillary sinus. Lungs and soft tissues are unremarkable. CTA Neck: Direct origin of the left vertebral artery from the aortic arch is seen. There is no significant atherosclerotic plaque in the aortic arch or the origins of the innominate, left common carotid, and left subclavian arteries. The common carotid, external carotid, cervical segments of the internal carotid arteries, and the cervical segments of the vertebral arteries are patent without hemodynamically significant stenosis. The right vertebral artery is dominant. CTA Head: The anterior and posterior cerebral circulations are patent. origin of the right posterior cerebral artery is seen. IMPRESSION: 1. No acute intracranial hemorrhage, evidence of acute territorial infarction, or other acute intracranial disease process. 2. No occlusion, hemodynamically significant stenosis, or dissection in the major cervical arteries. 3. No occlusion, hemodynamically significant stenosis, aneurysm, dissection, or arteriovenous malformation in the major intracranial arteries. Assessment of stenosis of the internal carotid arteries is based on NASCET criteria. ACT 112: Negative or not required by law. Electronically signed by: Luis Wynn M.D. 07/09/2022 12:45 PM Head CTA 07/09/22 11:42 CT angio neck with con, CT angio head wo/w CLINICAL HISTORY: dizzy TECHNIQUE: Contiguous axial CT images of the head were acquired from the base of the skull to the vertex without intravenous contrast administration. CT angiography of the head and neck was performed following intravenous administration of iodinated contrast. Coronal and sagittal MIPS were obtained from the axial data set and were submitted for review. Automated dose lowering techniques and/or adjustment according to patient size were utilized for this examination. All measurements were calculated based on NASCET criteria. CT DOSE: 1264.08 mGy.cm Comparison: None available at the time of this dictation. FINDINGS: CT head: There is no acute intracranial hemorrhage or evidence of acute territorial infarction. No shift of the midline structures, mass effect, or extra-axial abnormalities are shown. Mucous retention cyst is in the left maxillary sinus. Lungs and soft tissues are unremarkable. CTA Neck: Direct origin of the left vertebral artery from the aortic arch is seen. There is no significant atherosclerotic plaque in the aortic arch or the origins of the innominate, left common carotid, and left subclavian arteries. The common carotid, external carotid, cervical segments of the internal carotid arteries, and the cervical segments of the vertebral arteries are patent without hemodynamically significant stenosis. The right vertebral artery is dominant. CTA Head: The anterior and posterior cerebral circulations are patent. origin of the right posterior cerebral artery is seen. IMPRESSION: 1. No acute intracranial hemorrhage, evidence of acute territorial infarction, or other acute intracranial disease process. 2. No occlusion, hemodynamically significant stenosis, or dissection in the major cervical arteries. 3. No occlusion, hemodynamically significant stenosis, aneurysm, dissection, or arteriovenous malformation in the major intracranial arteries. Assessment of stenosis of the internal carotid arteries is based on NASCET criteria. ACT 112: Negative or not required by law. Electronically signed by: Luis Wynn M.D. 07/09/2022 12:45 PM Chest X-Ray 07/09/22 12:48 XR chest 1V portable CLINICAL HISTORY: dizzy TECHNIQUE: Single frontal radiograph of the chest was obtained. Comparison: Comparison is made to chest radiograph 11/30/2013 FINDINGS: Exam is limited by underpenetration. Cardiomegaly is noted. The aortic arch is calcified. The lungs are clear. No evidence of pleural effusion or pneumothorax. IMPRESSION: No acute chest disease. ACT 112: Negative or not required by law. Electronically signed by: Luis Wynn M.D. 07/09/2022 1:13 PM Supervising Physician Co-Signing Physician Notes History and physical exam performed by me. History notable for 81-year-old woman with hypertension, hypothyroidism who presents with generalized weakness, dizziness, nausea and vomiting. Reports that she has been feeling weak for the past 4 days. Had left eye cataract surgery last week and right cataract surgery 2 days ago. Has had anorexia. Had nausea and vomiting episodes yesterday. Was so weak that she could not more hence presentation to the hospital today. Also reports urinary frequency on review of systems. On exam, General: Obese woman, no acute distress Eyes: PERRL, conjunctivae normal, not pale, anicteric sclerae, EOM intact bilaterally ENMT: External ear and nose normal, oropharynx normal Respiratory: Normal respiratory effort, no respiratory distress, lungs clear to auscultation, no crackles and no wheezes Cardiovascular: RRR S1 S2 Gastrointestinal (Abdomen): Abdomen is not distended, soft, non-tender to palpation, no guarding, no palpable hepatosplenomegaly, normal bowel sounds Musculoskeletal: +trace ankle edema Genitourinary: No CVA tenderness Neurologic: Alert and oriented x 3, No focal weakness, sensation grossly intact Psychiatric: Euthymic affect Labs notable for WBC of 13,000, potassium of 3.2. UA was positive for nitrite, trace blood, leukocyte esterase and WBC more than 30. CT angio head and neck did not show any acute abnormalities, hemodynamically significant occlusion or stenosis Hypertensive urgency. Urinary tract infection. Patient's blood pressure already improving with hydralazine IV in ER and resumption of home p.o. meds. We will continue home amlodipine, losartan and hydrochlorothiazide. Replete hypokalemia and recheck potassium this evening. Continue ceftriaxone Follow-up urine culture PT/OT evaluation. Agree with other plans as detailed by Holly Valdez PA-C
[2022-07-09] MEDS ORDERED: hydroCHLOROthiazide 25 MG TAB PO STA (13:49)
[2022-07-09] MEDS ORDERED: POTASSIUM CHLORIDE CRTAB 20 MEQ TABCR PO STA (13:52)
[2022-07-09] MEDS ORDERED: LOSARTAN POTASSIUM 50 MG TAB PO ONE (14:00)
[2022-07-09] MEDS ORDERED: amLODIPine BESYLATE 5 MG TAB PO ONE (14:00)
[2022-07-09] MEDS ORDERED: ACETAMINOPHEN 325 MG TAB PO PRN (16:51)
[2022-07-09] MEDS ORDERED: POLYETHYLENE (MIRALAX) 17 GM PACK PO PRN (16:51)
[2022-07-09] MEDS ORDERED: diphenhydrAMINE Capsule 25 MG CAP PO PRN (17:02)
[2022-07-09] MEDS ORDERED: IBUPROFEN 200 MG TAB PO PRN (17:03)
[2022-07-09] MEDS: ENOXAPARIN INJ 40 MG/0.4 ML SYR SQ SCH (17:12)
[2022-07-09] MEDS: ONDANSETRON INJ 2 MG/ML 2 ML VIAL IV PRN (17:12)
[2022-07-09] MEDS: prednisoLONE acetate 1% OP SUSP 5 ML BTL OPB SCH ×2 (17:12→20:07)
[2022-07-09] MEDS: OFLOXACIN 0.3% 75 DROPS/5 ML BTL OPR SCH ×2 (17:12→20:06)
[2022-07-09] MEDS: SIMVASTATIN 20 MG TAB PO SCH (20:06)
[2022-07-09 20:28] LABS: Magnesium 1.9 mg/dl (1.7-2.4); Potassium 3.4 mmol/L (3.5-5.1)
[2022-07-10] MEDS: LOSARTAN POTASSIUM 50 MG TAB PO SCH (05:05)
[2022-07-10 08:00] LABS: Hematocrit (blood only) 41.7 % (37.0-47.0); Hemoglobin 14.5 g/dl (12.0-16.0); Mean Corpuscular Hemoglobin 32.7 pg (25.0-34.0); Mean Corpuscular Hgb Conc 34.8 g/dL (32.0-36.0); Mean Corpuscular Volume 93.9 fL (80.0-100.0); Mean Platelet Volume 11.4 fL (9.4-12.4); Platelet Count 231 K/uL (130-400); RDW Coefficient of Variation 12.8 % (11.5-14.5); RDW Standard Deviation 44.1 fL (36.4-46.3); Red Blood Count 4.44 M/uL (4.20-5.40); White Blood Count 11.95 K/ul (4.8-10.8)
[2022-07-10 08:18] LABS: BUN Creatinine Ratio 27.5 (10-20); Calcium 9.1 mg/dl (8.6-10.3); Creatinine Clr Calc Pharmacy 77.5 ml/min; Est GFR (African American) 93.3 ml/min; Est GFR (Non-African American) 80.5 ml/min; Potassium 3.5 mmol/L (3.5-5.1)
[2022-07-10] MEDS ORDERED: POTASSIUM CHLORIDE CRTAB 20 MEQ TABCR PO ONE (08:32)
[2022-07-10] MEDS: MULTIVITAMIN TAB PO SCH (08:44)
[2022-07-10] MEDS: hydroCHLOROthiazide 25 MG TAB PO SCH (08:45)
[2022-07-10] MEDS: LEVOTHYROXINE SODIUM 137 MCG TABLET PO SCH (08:45)
[2022-07-10] MEDS: OFLOXACIN 0.3% 75 DROPS/5 ML BTL OPR SCH ×4 (08:46→20:20)
[2022-07-10] MEDS: prednisoLONE acetate 1% OP SUSP 5 ML BTL OPB SCH ×4 (08:46→20:20)
[2022-07-10] MEDS ORDERED: NON-FORMULARY MEDICATION (Biotin 1 mg Tablet) PO SCH (09:00)
[2022-07-10] MEDS ORDERED: [UNRECOGNIZED DRUG - OTHER] PO SCH (09:00)
[2022-07-10] MEDS ORDERED: amLODIPine BESYLATE 5 MG TAB PO SCH (09:00)
[2022-07-10] MEDS ORDERED: LOSARTAN POTASSIUM 50 MG TAB PO SCH (09:00)
[2022-07-10] MEDS: hydrALAZINE 10 MG TAB PO PRN (13:19)
[2022-07-10] MEDS: cefTRIAXone SODIUM 2,000 MG in DEXTROSE 5% 50 ML IV SCH (13:21)
[2022-07-10 14:25] LABS: Appearance Urine Clear (Clear); Bacteria Urine Automated Negative (Negative); Bilirubin Urine Negative (Negative); Blood Urine Trace (Negative); Cast Urine Automated 0 /lpf (0-5); Color Urine Yellow; Epithelial Cell Urine Auto 0-5 /lpf (0-5); Glucose Urine UA Negative (Negative); Ketones Urine Negative (Negative); Leukocyte Esterase Urine 3+ (Negative); Nitrite Urine Positive (Negative); Protein Urine Negative (Negative); RBC Urine Automated 0-4 /hpf (0-4); Specific Gravity Urine 1.015 (1.000-1.030); Urobilinogen Urine Negative (Negative); WBC Urine Automated >30 /hpf (0-5)
--- NOTE | 2022-07-10 15:17 | Hospitalist Progress Note ---
Date of Service July 10, 2022 Assessment & Plan (1) Hypertensive urgency: (2) Dizziness: Plan: Patient is a 81 yr old female with H/O Hypertension, insomnia, prediabetes, hypothyroidism, hyperlipidemia and LEON who presents with nausea and dizziness x3 days. Starting on Tuesday, patient felt nauseated and generally weak as well as dizziness and was found to have hypertensive urgency and UTI. Hypertensive urgency Dizziness secondary to above --Head/Neck CTA:No acute intracranial hemorrhage, evidence of acute territorial infarction, or other acute intracranial disease process. No occlusion, hemodynamically significant stenosis, or dissection in the major cervical arteries. No occlusion, hemodynamically significant stenosis, aneurysm, dissection, or arteriovenous malformation in the major intracranial arteries. --Continue amlodipine, HCTZ Losartan increased to 100 mg today Hydralazine as needed as needed We will adjust meds further as needed (3) UTI (urinary tract infection), uncomplicated: Plan: Urinary tract infection Urine culture growing gram-negative bacilli Continue Rocephin for now (4) Hypokalemia: Plan: Hypokalemia Replete electrolytes as needed (5) History of cataract surgery: Plan: L cataract last week, R 2 day ago. Continue eye drops QID (6) Hypothyroidism: Plan: Continue levothyroxine (7) Hyperlipidemia: Plan: Continue statin (8) Sleep apnea: Plan: Does not use CPAP at home DVT Px: SQ Lovenox Code status: FULL CODE Admission and Anticipated Discharge Date Admission Date: July 09, 2022 Subjective Patient is seen and examined at bedside Dizziness better when compared to yesterday Reports generalized weakness, feels tired and has been sleeping mostly Denies any headache, change in vision, chest pain, dyspnea, nausea, vomiting, abdominal pain No other complaints Review of Systems Review of Systems: All systems reviewed & are unremarkable except as noted in Subjective Physical Exam Physical Exam: Physical Exam: Vitals signs as noted above General Appearance:Obese, no apparent distress Head: normocephalic, Atraumatic Eyes: normal inspection, EOMI Neck: supple, Trachea midline Respiratory/Chest: Normal breath sounds, CTA, No accessory muscle use Cardiovascular: S1, S2, No murmur Abdomen/GI:Soft, Non tender, Bowel sounds present Extremities/Musculoskeletal:normal inspection, no edema Neurologic/Psych:AAOX3, grossly no focal neurological deficits Skin: normal color, warm Results & Data Results & Data Vital Signs (Past 12 Hours) Vital Signs Temp Pulse Pulse Resp BP BP Pulse Ox 07/10/22 12:07 36.5 C 63 18 183/79 H 98 07/10/22 08:00 07/10/22 08:37 81 07/10/22 07:25 36.9 C 57 L 19 188/72 H 96 07/10/22 04:38 36.8 C 64 18 204/74 H 95 O2 Del Method 07/10/22 12:07 Room Air 07/10/22 08:00 Room Air 07/10/22 08:37 07/10/22 07:25 Room Air 07/10/22 04:38 Room Air Laboratory Results Short CBC 07/10/22 Range/Units 07:39 WBC 11.95 H (4.8-10.8) K/ul Hgb 14.5 (12.0-16.0) g/dl Hct 41.7 (37.0-47.0) % Plt Count 231 (130-400) K/uL BMP 07/09/22 07/09/22 07/10/22 18:00 19:39 07:39 Sodium 139 Potassium Cancelled 3.4 L 3.5 Chloride 102 Carbon Dioxide 29 BUN 19 Creatinine 0.69 Glucose 116 H Calcium 9.1 Urine 07/10/22 Range/Units 14:05 Urine Color Yellow Urine Appearance Clear (Clear) Urine pH 7.0 (4.5-7.5) Ur Specific [place] 1.015 (1.000-1.030) Urine Protein Negative (Negative) Urine Glucose (UA) Negative (Negative)
[2022-07-10] MEDS: ENOXAPARIN INJ 40 MG/0.4 ML SYR SQ SCH (18:00)
[2022-07-10] MEDS: SIMVASTATIN 20 MG TAB PO SCH (20:20)
--- NOTE | 2022-07-10 21:20 | Electrocardiogram Report ---
Test Reason : Blood Pressure : / mmHG Vent. Rate : 083 BPM Atrial Rate : 083 BPM P-R Int : 250 ms QRS Dur : 096 ms QT Int : 408 ms P-R-T Axes : 051 -04 058 degrees QTc Int : 479 ms Sinus rhythm with 1st degree A-V block Moderate voltage criteria for LVH, may be normal variant Borderline ECG When compared with ECG of 30-NOV-2013 11:26, Premature ventricular complexes are no longer Present MS interval has increased Confirmed by Benjamin Smith ([id number]) on 07/10/2022 9:20:21 PM Referred By: REFERRED SELF Confirmed By:Benjamin Smith
--- NOTE | 2022-07-10 21:43 | Electrocardiogram Report ---
Test Reason : Blood Pressure : / mmHG Vent. Rate : 064 BPM Atrial Rate : 064 BPM P-R Int : 234 ms QRS Dur : 100 ms QT Int : 462 ms P-R-T Axes : 063 009 059 degrees QTc Int : 476 ms Sinus rhythm with 1st degree A-V block Cannot rule out Inferior infarct , age undetermined Abnormal ECG When compared with ECG of 09-JUL-2022 16:06, No significant change was found Confirmed by Benjamin Smith ([id number]) on 07/10/2022 9:43:36 PM Referred By: REFERRED SELF Confirmed By:Benjamin Smith
[2022-07-11] MEDS: hydrALAZINE 10 MG TAB PO PRN (02:23)
[2022-07-11 05:05] LABS: Hematocrit (blood only) 43.8 % (37.0-47.0); Hemoglobin 14.9 g/dl (12.0-16.0); Mean Corpuscular Hemoglobin 32.7 pg (25.0-34.0); Mean Corpuscular Volume 96.1 fL (80.0-100.0); Mean Platelet Volume 11.3 fL (9.4-12.4); Platelet Count 216 K/uL (130-400); RDW Coefficient of Variation 12.5 % (11.5-14.5); RDW Standard Deviation 44.2 fL (36.4-46.3); Red Blood Count 4.56 M/uL (4.20-5.40); White Blood Count 9.63 K/ul (4.8-10.8)
[2022-07-11 05:22] LABS: BUN Creatinine Ratio 24.6 (10-20); Calcium 9.1 mg/dl (8.6-10.3); Creatinine Clr Calc Pharmacy 75.5 ml/min; Est GFR (African American) 93.3 ml/min; Est GFR (Non-African American) 80.5 ml/min; Potassium 3.5 mmol/L (3.5-5.1)
[2022-07-11] MEDS: amLODIPine BESYLATE 5 MG TAB PO SCH (09:28)
[2022-07-11] MEDS: LEVOTHYROXINE SODIUM 137 MCG TABLET PO SCH (09:29)
[2022-07-11] MEDS: LOSARTAN POTASSIUM 50 MG TAB PO SCH (09:29)
[2022-07-11] MEDS: MULTIVITAMIN TAB PO SCH (09:31)
[2022-07-11] MEDS: hydroCHLOROthiazide 25 MG TAB PO SCH (09:31)
[2022-07-11] MEDS: prednisoLONE acetate 1% OP SUSP 5 ML BTL OPB SCH ×4 (09:32→22:53)
[2022-07-11] MEDS: OFLOXACIN 0.3% 75 DROPS/5 ML BTL OPR SCH ×4 (09:32→22:54)
[2022-07-11] MEDS: cefTRIAXone SODIUM 2,000 MG in DEXTROSE 5% 50 ML IV SCH (13:09)
[2022-07-11] MEDS: ONDANSETRON INJ 2 MG/ML 2 ML VIAL IV PRN (16:36)
--- NOTE | 2022-07-11 17:09 | Hospitalist Progress Note ---
Date of Service July 11, 2022 Assessment & Plan (1) Hypertensive urgency: (2) Dizziness: Plan: Patient is a 81 yr old female with H/O Hypertension, insomnia, prediabetes, hypothyroidism, hyperlipidemia and LEON who presents with nausea and dizziness x3 days. Starting on Tuesday, patient felt nauseated and generally weak as well as dizziness and was found to have hypertensive urgency and UTI. Hypertensive urgency Dizziness secondary to above --Head/Neck CTA:No acute intracranial hemorrhage, evidence of acute territorial infarction, or other acute intracranial disease process. No occlusion, hemodynamically significant stenosis, or dissection in the major cervical arteries. No occlusion, hemodynamically significant stenosis, aneurysm, dissection, or arteriovenous malformation in the major intracranial arteries. --Orthostatics not contributory --Continue amlodipine, HCTZ Losartan increased to 100 mg today Amlodipine increased to 10 mg daily Hydralazine as needed as needed Monitor BP (3) UTI (urinary tract infection), uncomplicated: Plan: Suspected Urinary tract infection Urine culture--preliminary culture negative Empirically on Rocephin (4) Hypokalemia: Plan: Hypokalemia Replete electrolytes as needed (5) History of cataract surgery: Plan: L cataract last week, R 2 day ago. Continue eye drops QID (6) Hypothyroidism: Plan: Continue levothyroxine (7) Hyperlipidemia: Plan: Continue statin (8) Sleep apnea: Plan: Does not use CPAP at home DVT Px: SQ Lovenox Code status: FULL CODE Admission and Anticipated Discharge Date Admission Date: July 09, 2022 Subjective Patient is seen and examined at bedside Reported poor appetite, generalized weakness this morning Dizziness intermittently Also reported nausea to RN No other complaints Denies any headache, change in vision, chest pain, dyspnea, nausea, vomiting, abdominal pain Review of Systems Review of Systems: All systems reviewed & are unremarkable except as noted in Subjective Physical Exam Physical Exam: Physical Exam: Vitals signs as noted above General Appearance:Obese, no apparent distress Head: normocephalic, Atraumatic Eyes: normal inspection, EOMI Neck: supple, Trachea midline Respiratory/Chest: Normal breath sounds, CTA, No accessory muscle use Cardiovascular: S1, S2, No murmur Abdomen/GI:Soft, Non tender, Bowel sounds present Extremities/Musculoskeletal:normal inspection, no edema Neurologic/Psych:AAOX3, grossly no focal neurological deficits Skin: normal color, warm Results & Data Results & Data Vital Signs (Past 12 Hours) Vital Signs Temp Pulse Pulse Resp BP Pulse Ox O2 Del Method 07/11/22 16:18 59 L 07/11/22 11:58 36.8 C 53 L 17 175/79 H 96 Room Air 07/11/22 08:00 Room Air 07/11/22 07:58 36.6 C 54 L 18 170/79 H 93 Room Air 07/11/22 07:47 64 07/11/22 05:11 36.8 C 54 L 18 168/76 H 95 Room Air Laboratory Results Short CBC 07/11/22 Range/Units 04:11 WBC 9.63 (4.8-10.8) K/ul Hgb 14.9 (12.0-16.0) g/dl Hct 43.8 (37.0-47.0) % Plt Count 216 (130-400) K/uL BMP 07/11/22 04:11 Sodium 139 Potassium 3.5 Chloride 99 Carbon Dioxide 30 BUN 17 Creatinine 0.69 Glucose 111 H Calcium 9.1
[2022-07-11] MEDS: ENOXAPARIN INJ 40 MG/0.4 ML SYR SQ SCH (17:53)
[2022-07-11] MEDS: SIMVASTATIN 20 MG TAB PO SCH (22:54)
[2022-07-12] MEDS: hydrALAZINE 10 MG TAB PO PRN (00:22)
[2022-07-12 07:09] LABS: BUN Creatinine Ratio 36.7 (10-20); Calcium 9.4 mg/dl (8.6-10.3); Creatinine Clr Calc Pharmacy 86.2 ml/min; Est GFR (African American) 97.7 ml/min; Est GFR (Non-African American) 84.3 ml/min; Potassium 3.2 mmol/L (3.5-5.1)
[2022-07-12] MEDS: hydroCHLOROthiazide 25 MG TAB PO SCH (08:06)
[2022-07-12] MEDS: amLODIPine BESYLATE 5 MG TAB PO SCH (08:06)
[2022-07-12] MEDS: LOSARTAN POTASSIUM 50 MG TAB PO SCH (08:06)
[2022-07-12] MEDS: LEVOTHYROXINE SODIUM 137 MCG TABLET PO SCH (08:06)
[2022-07-12] MEDS: MULTIVITAMIN TAB PO SCH (08:07)
[2022-07-12] MEDS: prednisoLONE acetate 1% OP SUSP 5 ML BTL OPB SCH ×4 (08:07→21:43)
[2022-07-12] MEDS: OFLOXACIN 0.3% 75 DROPS/5 ML BTL OPR SCH ×4 (08:08→21:43)
[2022-07-12] MEDS ORDERED: POTASSIUM CHLORIDE CRTAB 20 MEQ TABCR PO ONE (09:30)
[2022-07-12] MEDS: MECLIZINE 12.5 MG TAB PO PRN (10:29)
[2022-07-12] MEDS: DOCUSATE SODIUM/SENNA 50/8.6MG TAB PO SCH ×2 (13:16→21:43)
[2022-07-12] MEDS: cefTRIAXone SODIUM 2,000 MG in DEXTROSE 5% 50 ML IV SCH (13:17)
[2022-07-12] MEDS: ENOXAPARIN INJ 40 MG/0.4 ML SYR SQ SCH (17:50)
--- NOTE | 2022-07-12 18:29 | Hospitalist Progress Note ---
Date of Service July 12, 2022 Assessment & Plan (1) Hypertensive urgency: (2) Dizziness: Plan: Patient is a 81 yr old female with H/O Hypertension, insomnia, prediabetes, hypothyroidism, hyperlipidemia and LEON who presents with nausea and dizziness x3 days. Starting on Tuesday, patient felt nauseated and generally weak as well as dizziness and was found to have hypertensive urgency and UTI. Hypertensive urgency Dizziness secondary to above --Head/Neck CTA:No acute intracranial hemorrhage, evidence of acute territorial infarction, or other acute intracranial disease process. No occlusion, hemodynamically significant stenosis, or dissection in the major cervical arteries. No occlusion, hemodynamically significant stenosis, aneurysm, dissection, or arteriovenous malformation in the major intracranial arteries. --Orthostatics not contributory --Continue amlodipine, HCTZ Losartan increased to 100 mg today Amlodipine increased to 10 mg daily Hydralazine as needed as needed Blood pressure improved Chronic dizziness for many months reported by family Meclizine as needed Constipation Continue bowel regimen (3) UTI (urinary tract infection), uncomplicated: Plan: Suspected Urinary tract infection Urine culture--E.Coli on Rocephin >> transition to cefdinir to complete the course (4) Hypokalemia: Plan: Hypokalemia Replete electrolytes as needed (5) History of cataract surgery: Plan: L cataract last week, R 2 day ago. Continue eye drops QID (6) Hypothyroidism: Plan: Continue levothyroxine (7) Hyperlipidemia: Plan: Continue statin (8) Sleep apnea: Plan: Does not use CPAP at home DVT Px: SQ Lovenox Code status: FULL CODE Disposition Rehab as able Admission and Anticipated Discharge Date Admission Date: July 09, 2022 Subjective Patient is seen and examined at bedside Appetite better today Reports constipation Discussed with patient's family at bedside Reports chronic dizziness and intermittent nausea Denies any headache, change in vision, chest pain, dyspnea, nausea, vomiting, abdominal pain BP better Review of Systems Review of Systems: All systems reviewed & are unremarkable except as noted in Subjective Physical Exam Physical Exam: Physical Exam: Vitals signs as noted above General Appearance:Obese, no apparent distress Head: normocephalic, Atraumatic Eyes: normal inspection, EOMI Neck: supple, Trachea midline Respiratory/Chest: Normal breath sounds, CTA, No accessory muscle use Cardiovascular: S1, S2, No murmur Abdomen/GI:Soft, Non tender, Bowel sounds present Extremities/Musculoskeletal:normal inspection, no edema Neurologic/Psych:AAOX3, grossly no focal neurological deficits Skin: normal color, warm Results & Data Results & Data Vital Signs (Past 12 Hours) Vital Signs Temp Pulse Pulse Resp BP Pulse Ox O2 Del Method 07/12/22 16:42 36.8 C 67 18 130/69 96 Room Air 07/12/22 15:45 64 07/12/22 11:18 36.8 C 58 L 17 166/77 H 94 Room Air 07/12/22 08:11 36.5 C 55 L 18 164/73 H 95 Room Air 07/12/22 07:49 52 L Laboratory Results [facility] 07/12/22 06:07 Sodium 138 Potassium 3.2 L Chloride 98 Carbon Dioxide 30 BUN 22 Creatinine 0.60 Glucose 101 H Calcium 9.4
[2022-07-12] MEDS: SIMVASTATIN 20 MG TAB PO SCH (21:43)
[2022-07-13 06:46] LABS: BUN Creatinine Ratio 34.8 (10-20); Calcium 9.2 mg/dl (8.6-10.3); Est GFR (African American) 93.3 ml/min; Est GFR (Non-African American) 80.5 ml/min; Potassium 3.4 mmol/L (3.5-5.1)
[2022-07-13] MEDS: LEVOTHYROXINE SODIUM 137 MCG TABLET PO SCH (09:14)
[2022-07-13] MEDS: DOCUSATE SODIUM/SENNA 50/8.6MG TAB PO SCH ×2 (09:14→21:59)
[2022-07-13] MEDS: LOSARTAN POTASSIUM 50 MG TAB PO SCH (09:14)
[2022-07-13] MEDS: MULTIVITAMIN TAB PO SCH (09:15)
[2022-07-13] MEDS: hydroCHLOROthiazide 25 MG TAB PO SCH (09:16)
[2022-07-13] MEDS: amLODIPine BESYLATE 5 MG TAB PO SCH (09:16)
[2022-07-13] MEDS: CEFDINIR 300 MG CAP PO SCH ×2 (09:16→21:58)
[2022-07-13] MEDS: prednisoLONE acetate 1% OP SUSP 5 ML BTL OPB SCH ×5 (09:17→22:28)
[2022-07-13] MEDS: OFLOXACIN 0.3% 75 DROPS/5 ML BTL OPR SCH ×5 (09:17→22:28)
[2022-07-13] MEDS ORDERED: POTASSIUM CHLORIDE CRTAB 20 MEQ TABCR PO ONE (09:39)
[2022-07-13] MEDS: POLYETHYLENE (MIRALAX) 17 GM PACK PO SCH (13:00)
[2022-07-13] MEDS: MECLIZINE 12.5 MG TAB PO PRN (13:29)
--- NOTE | 2022-07-13 17:35 | Hospitalist Progress Note ---
Date of Service July 13, 2022 Assessment & Plan (1) Hypertensive urgency: (2) Dizziness: Plan: Patient is a 81 yr old female with H/O Hypertension, insomnia, prediabetes, hypothyroidism, hyperlipidemia and LEON who presents with nausea and dizziness x3 days. Starting on Tuesday, patient felt nauseated and generally weak as well as dizziness and was found to have hypertensive urgency and UTI. Hypertensive urgency Dizziness secondary to above --Head/Neck CTA:No acute intracranial hemorrhage, evidence of acute territorial infarction, or other acute intracranial disease process. No occlusion, hemodynamically significant stenosis, or dissection in the major cervical arteries. No occlusion, hemodynamically significant stenosis, aneurysm, dissection, or arteriovenous malformation in the major intracranial arteries. --Orthostatics not contributory --Continue amlodipine, HCTZ Losartan increased to 100 mg today Amlodipine increased to 10 mg daily Hydralazine as needed as needed Chronic dizziness for many months reported by family (Onset after eye surgery per patient) Meclizine as needed PT for Florencio's Negative Will need follow-up with ophthalmology upon discharge Will obtain MRI brain Constipation Continue bowel regimen Encouraged to ambulate (3) UTI (urinary tract infection), uncomplicated: Plan: Suspected Urinary tract infection Urine culture--E.Coli on Rocephin >> transition to cefdinir to complete the course (4) Hypokalemia: Plan: Hypokalemia Replete electrolytes as needed (5) History of cataract surgery: Plan: L cataract last week, R 2 day ago. Continue eye drops QID (6) Hypothyroidism: Plan: Continue levothyroxine (7) Hyperlipidemia: Plan: Continue statin (8) Sleep apnea: Plan: Does not use CPAP at home DVT Px: SQ Lovenox Code status: FULL CODE Disposition Rehab as able Admission and Anticipated Discharge Date Admission Date: July 09, 2022 Subjective Patient is seen and examined at bedside Sitting in chair during my encounter Reports intermittent dizziness and nausea which is positional Reported that her dizziness has been present for many months since having eye surgery Denies any headache, change in vision, chest pain, dyspnea, nausea, vomiting, abdominal pain No BM today Review of Systems Review of Systems: All systems reviewed & are unremarkable except as noted in Subjective Physical Exam Physical Exam: Physical Exam: Vitals signs as noted above General Appearance:Obese, no apparent distress Head: normocephalic, Atraumatic Eyes: normal inspection, EOMI Neck: supple, Trachea midline Respiratory/Chest: Normal breath sounds, CTA, No accessory muscle use Cardiovascular: S1, S2, No murmur Abdomen/GI:Soft, Non tender, Bowel sounds present Extremities/Musculoskeletal:normal inspection, no edema Neurologic/Psych:AAOX3, grossly no focal neurological deficits Skin: normal color, warm Results & Data Results & Data Vital Signs (Past 12 Hours) Vital Signs Temp Pulse Pulse Resp BP BP Pulse Ox 07/13/22 15:43 66 07/13/22 15:24 36.8 C 65 20 126/82 96 07/13/22 11:43 36.5 C 57 L 18 145/79 H 95 07/13/22 10:37 59 L 07/13/22 08:00 07/13/22 07:56 36.6 C 58 L 18 137/77 97 O2 Del Method 07/13/22 15:43 07/13/22 15:24 Room Air 07/13/22 11:43 Room Air 07/13/22 10:37 07/13/22 08:00 Room Air 07/13/22 07:56 Room Air Laboratory Results [facility] 07/13/22 05:28 Sodium 138 Potassium 3.4 L Chloride 99 Carbon Dioxide 29 BUN 24 H Creatinine 0.69 Glucose 89 Calcium 9.2
[2022-07-13] MEDS: ENOXAPARIN INJ 40 MG/0.4 ML SYR SQ SCH (18:00)
[2022-07-13] MEDS ORDERED: LORazepam 2 MG/1 ML VIAL IV STA (19:31)
[2022-07-13] MEDS ORDERED: GADOBUTROL 65ML VIAL IV ONE (21:34)
[2022-07-13] MEDS: SIMVASTATIN 20 MG TAB PO SCH (21:58)
--- NOTE | 2022-07-13 22:55 | Magnetic Resonance Report ---
Exam(s): MRI HEAD W/WO Contrast IV Amt: 10cc gadavist EXAM: MR Head Without and With Intravenous Contrast CLINICAL HISTORY: Reason for exam: Persistent Dizziness. TECHNIQUE: Magnetic resonance images of the head/brain without and with intravenous contrast in multiple planes. CONTRAST: Patient received 10cc gadavist of IV contrast COMPARISON: Comparison made to prior noncontrast head CT from July 09, 2022. FINDINGS: Brain: There is an acute/subacute ischemic injury within the right cerebellum with extensive cytotoxic edema, without evidence of hemorrhagic transformation. There is mild regional mass-effect with mild mass-effect on the fourth ventricle. No mass. No hemorrhage. Diminished enhancement within the right cerebellum. Mild nonspecific white matter changes. Ventricles: Unremarkable. No ventriculomegaly. Bones/joints: Unremarkable. Sinuses: Chronic ethmoid and right foot pulse on the side. No acute sinusitis. Mastoid air cells: Unremarkable as visualized. No mastoid effusion. Orbits: Bilateral lens replacements. IMPRESSION: Findings consistent with acute/subacute ischemic injury of the right cerebellum with mild mass-effect on the fourth ventricle without evidence of hydrocephalus or hemorrhagic transformation. Electronically signed by: Ching Hayes MD 07/13/22 22:54 PM
[2022-07-14 06:22] LABS: Hematocrit (blood only) 44.5 % (37.0-47.0); Hemoglobin 15.3 g/dl (12.0-16.0); Mean Corpuscular Hemoglobin 32.3 pg (25.0-34.0); Mean Corpuscular Hgb Conc 34.4 g/dL (32.0-36.0); Mean Corpuscular Volume 94.1 fL (80.0-100.0); Mean Platelet Volume 11.7 fL (9.4-12.4); Platelet Count 236 K/uL (130-400); RDW Coefficient of Variation 11.9 % (11.5-14.5); Red Blood Count 4.73 M/uL (4.20-5.40); White Blood Count 9.84 K/ul (4.8-10.8)
[2022-07-14 06:30] LABS: BUN Creatinine Ratio 29.8 (10-20); Calcium 9.2 mg/dl (8.6-10.3); Creatinine Clr Calc Pharmacy 61.8 ml/min; Est GFR (African American) 74.5 ml/min; Est GFR (Non-African American) 64.3 ml/min; Potassium 3.8 mmol/L (3.5-5.1)
[2022-07-14] MEDS: DOCUSATE SODIUM/SENNA 50/8.6MG TAB PO SCH ×2 (08:49→20:55)
[2022-07-14] MEDS: LEVOTHYROXINE SODIUM 137 MCG TABLET PO SCH (08:49)
[2022-07-14] MEDS: CEFDINIR 300 MG CAP PO SCH ×2 (08:49→20:55)
[2022-07-14] MEDS: amLODIPine BESYLATE 5 MG TAB PO SCH (08:50)
[2022-07-14] MEDS: hydroCHLOROthiazide 25 MG TAB PO SCH (08:50)
[2022-07-14] MEDS: LOSARTAN POTASSIUM 50 MG TAB PO SCH (08:52)
[2022-07-14] MEDS: POLYETHYLENE (MIRALAX) 17 GM PACK PO SCH (08:52)
[2022-07-14] MEDS: prednisoLONE acetate 1% OP SUSP 5 ML BTL OPB SCH ×4 (08:52→20:38)
[2022-07-14] MEDS: MULTIVITAMIN TAB PO SCH (08:52)
[2022-07-14] MEDS: OFLOXACIN 0.3% 75 DROPS/5 ML BTL OPR SCH ×4 (08:52→20:38)
[2022-07-14] MEDS: ASPIRIN 81 MG ECTAB PO SCH (09:53)
[2022-07-14 10:21] LABS: Chol HDL Ratio 3.1 (0-5)
--- NOTE | 2022-07-14 10:35 | Neurology Consultation ---
Date of Consultation July 14, 2022 Assessment & Plan (1) Cerebellar stroke, acute: (2) Vertigo due to acute cerebrovascular disease: (3) Hypertensive urgency: Plan patient had the acute onset of vertigo, balance problems with some nausea and vomiting July 08. This is likely when her cerebellar stroke initiated. It is now 1 week later and she has improved vertigo and balance compared to admission. However, the patient still has positional vertigo helps with meclizine and balance issues, needing a walker or person for support. She does not have any limb ataxia. This is a gait ataxia. She had significant hypertension on admission and the stroke was likely due to hypertensive small vessel ischemic disease. Although there is some swelling/edema with this stroke it is minimal and likely improving now ( she is past danger of increased swelling from the stroke ). Recommendations: 1. Agree with 81 mg aspirin tablet daily. 2. keep blood pressure controlled as you are doing, aiming for a mean arterial pressure of 95-100. 3. Hemoglobin A1c and fasting lipid profile are pending. 4. Consider echocardiogram if not already done 5. Continue with physical and occupational therapy. She may be a good rehabilitation hospital candidate. Overall, I spen7t a total of 75 minutes with this case including review of records, review of MRI films, direct evaluation the patient at bedside, reports generation, and discussion of the case with the patient at bedside, RN, and Dr. Díaz, including differential diagnosis and treatment options. History of Present Illness Reason for Consultation: patient is an 81-year-old, who I was asked to see at the request of Dr. Díaz, for neurologic evaluation regarding cerebellar stroke. Requesting Physician: Dr. Díaz Attending Physician: Kaycee Díaz MD History of Present Illness This patient has a history of hypertension but she believes it has been fairly controlled more recently. She has no history of cigarette / tobacco use, diabetes, dyslipidemia, or heart disease. She is post bilateral total hip replacements and left total knee replacement. On TuesdayJuly 07, she had cataract surgery in her right eye ( left eye was done the week previous). She did well and had a good follow-up visit on the morning of July 08. In the evening of July 08 after eating some pineapple, she had the sudden onset of nausea and vomiting as well as dizziness. She felt weak in general and could not walk well. Movement of her head or body made the dizziness worse and she felt like she was falling to the right. When she was still and closed her eyes she felt a little better. She came to the emergency room July 09 because she was not any better. She arrived at 11:27 a.m. with a temperature of 36.4, pulse 63 and regular, respiratory rate 13, and blood pressure 224/85. O2 saturation was 93%. neurologic examination was nonfocal and she did not have any meningeal signs or encephalopathy. CBC was largely unremarkable although the white count was mildly elevated. Chem profile showed a glucose of 165 and potassium at 3.2. CT scan of the head was unremarkable and CT angiography of the head and neck were unremarkable. There was no evidence of stroke or vascular anomalies. The patient was given meclizine which helped her dizziness. Over the ensuing days her dizziness has become a little less frequent and severe. Medications still helps. Her blood pressure has been nicely controlled. Because her balance has been poor throughout, she underwent an MRI of the brain yesterday. MRI shows a rather large right cerebellar hemispheric stroke with a little bit of mass effect. The rest of the MRI looks largely unremarkable with no obvious generalized atrophy or small vessel ischemic disease. She denies any headaches pain, weakness, numbness, or clumsiness. Allergies Allergy/AdvReac Type Severity Reaction Status Date / Time No Known Allergies Allergy Unknown Verified 07/07/22 06:14 Home Medications Medication Instructions Recorded Confirmed Type amlodipine 5 mg tablet 5 mg PO QAM 06/23/22 07/09/22 History biotin 1 mg tablet 1 mg PO QAM 06/23/22 07/09/22 History hydrochlorothiazide 25 mg tablet 25 mg PO QAM 06/23/22 07/09/22 History ibuprofen 200 mg-diphenhydramine 2 cap PO HS PRN Insomnia 06/23/22 07/09/22 History HCl 25 mg capsule (Ibuprofen PM) levothyroxine 137 mcg tablet 137 mcg PO QAM 06/23/22 07/09/22 History losartan 50 mg tablet 50 mg PO QAM 06/23/22 07/09/22 History multivitamin 1 tab PO QAM 06/23/22 07/09/22 History simvastatin 20 mg tablet 20 mg PO HS 06/23/22 07/09/22 History vitamin C 500 mg-quercetin 250 1 cap PO QAM 06/23/22 07/09/22 History mg-bioflavonoids, citrus 33 mg capsule (Quercetin Complex) ofloxacin 0.3 % eye drops 1 drp OPR QID 07/09/22 07/09/22 History prednisolone acetate 1 % eye 1 drp QID 07/09/22 07/09/22 History drops,suspension zolpidem 5 mg tablet 5 mg PO HS yes 07/09/22 07/09/22 History Patient History Medical History Asthma no inhalers currently d/t insurance issues. rarely has any problems. History of COVID-19 04/01/22 tested positive. loss of taste and smell, fatigue, headache, sore throat, cough> still has fatigue and the loss of taste altered loss of smell. 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 Cancer Father , Patient age 61 of heart issues Heart disease Other Lung cancer No family history of adverse response to anesthesia Social History (Updated 07/14/22 @ 10:46 by Leandro Valencia MD) Smoking Status: Never smoker Second Hand Exposure: No; Hx Alcohol Use: No Hx Substance Use: No Preferred Language: Filipino Communication Ability: Effective Emergency Medical Technician Basic Required: No Beliefs That Will Affect Care: None Current Living Situation: Alone current occupational status: retired current occupation: retired highway maintenance worker Feels Safe at Home: Yes Assistive Devices: None Review of Systems Constitutional: no fever, no fatigue and no weakness Eyes: no diplopia, no eye pain and no worsening vision Ear, Nose, Mouth, Throat: + dizziness; no ear pain, no tinnitus, no hearing loss, no snoring, no hoarseness and no dysphagia Respiratory: no cough and no dyspnea Cardiovascular: no chest pain, no palpitations and no lightheadedness Gastrointestinal: no abdominal pain, no nausea and no vomiting Genitourinary: no dysuria, no urinary frequency and no urinary incontinence Musculoskeletal: + joint pain; no back pain, no neck pain, no radicular pain and no myalgia Integumentary: no rash and no lesions Neurologic: no gait abnormality, no localized weakness, no generalized weakness, no tingling, no numbness, no tremor(s), no abnormal movements, no headache(s), no abnormal speech, no confusion and no memory loss Psychiatric: no depression, no irritability, no anxiety, no difficulty concentrating, no confusion and no hallucinations Endocrine: no fatigue and no flushing Hematologic / Lymphatic: no easy bleeding and no easy bruising Allergy / Immunological: no urticaria and no problem reported Exam (Neuro) Physical Exam: The patient is right-handed. The patient is awake, alert, and attentive. Speech is normal without any aphasia or dysarthria. The patient can name objects, repeat phrases, and has normal spontaneous speech. Mentation and thought processes are intact, with orientation to person, place and time, and normal fund of knowledge. Attention and concentration are normal. Mood and affect are normal and appropriate. General appearance and grooming are normal. Short and long-term memory are intact. Pupils are 4 mm bilaterally and reactive to light. Extraocular eye muscles are intact without nystagmus. Visual acuity and visual brock seem normal grossly to confrontation. The patient is set up or stood up she will get somewhat vertiginous but no nystagmus was noted. Moving her head from side to side give her some vertiginous symptoms as well. There are no deficits to sensation in the face in all 3 distributions of the fifth cranial nerve bilaterally. Corneal reflexes are positive bilaterally. Facial strength and symmetry was normal bilaterally. Hearing seems normal bilaterally. Palate moves well without asymmetry. There is normal sternocleidomastoid and trapezius (shoulder shrug) strength bilaterally. Tongue is midline with good strength bilaterally. Neck has a full range of motion without discomfort. Cervical, thoracic, and lumbar spine are nontender to palpation. Gait is Cautious and slightly wide-based. She cannot navigate well on her own . Stance was poor, feet together and needed the assistance of at least 1. With outstretched arms there is no drift. There are no resting, postural, or action tremors. There is no ataxia with finger to nose testing. heel-henriquez testing was attempted but she could not do this because of hip and knee issues. There is good facility in the hands. No other abnormal involuntary movements are noted. Motor strength is 5/5 diffusely in the arms bilaterally including deltoids, biceps, triceps, brachioradialis, wrist flexors and extensors, booster pump oiler, and intrinsic hand muscles. Motor strength is 5/5 diffusely in the legs bilaterally including hip flexors, quadriceps, hamstrings, gastrocnemius, tibialis anterior, tibialis posterior, and Peroneii muscles. Toe extensors are normal and there is good bulk in the extensor digitorum brevis muscles bilaterally. The limbs have good tone without rigidity or spasticity. There is no atrophy noted in the muscles. Muscle bulk is normal, there is no tenderness to palpation, no myotonia to percussion, and no fasciculations seen. Sensory examination is intact to touch and pin throughout all 4 limbs diffusely. Reflexes are 1/4 in the biceps, triceps, brachioradialis, and quadriceps tendons bilaterally. Achilles tendon reflexes are absent bilaterally. There is no clonus bilaterally. Toes are downgoing with plantar stimulation bilaterally. Peripheral pulses are present and of normal quality distally in all 4 limbs. There is no peripheral edema noted in the limbs. Results & Data Vital Signs (Past 12 Hours) Vital Signs Temp Pulse Pulse Resp BP Pulse Ox O2 Del Method 07/14/22 07:58 Room Air 07/14/22 07:24 36.3 C L 63 20 122/77 97 Room Air 07/14/22 07:20 56 L 07/14/22 04:03 36.7 C 54 L 16 141/82 H 95 Room Air 07/13/22 22:35 73 07/13/22 22:35 36.5 C 65 18 152/87 H 96 Room Air PG Care Time/CCT Total # of Minutes Spent Total Time Spent with Patient: Total time spent is greater than 50% in coordination of care (as documented) at patient's floor/unit and/or counseling patient: Coding Level of Care Code 15167 INT INP/OBS CARE 3/75MIN Diagnoses Cerebellar stroke, acute I63.9 Vertigo due to acute cerebrovascular disease I67.89; R42 Hypertensive urgency I16.0
[2022-07-14 10:47] LABS: Estimated Average Glucose 120 mg/dl; Hemoglobin A1C 5.8 % (4.5-5.6)
--- NOTE | 2022-07-14 14:16 | Hospitalist Progress Note ---
Date of Service July 14, 2022 Assessment & Plan (1) Cerebellar stroke, acute: (2) Hypertensive urgency: (3) Dizziness: Plan: 81 yr old female with H/O Hypertension, insomnia, prediabetes, hypothyroidism, hyperlipidemia and LEON who presents with nausea and dizziness x3 days. Starting on Tuesday, patient felt nauseated and generally weak as well as dizziness and was found to have hypertensive urgency and UTI. Hypertensive urgency --Head/Neck CTA:No acute intracranial hemorrhage, evidence of acute territorial infarction, or other acute intracranial disease process. No occlusion, hemodynamically significant stenosis, or dissection in the major cervical arteries. No occlusion, hemodynamically significant stenosis, aneurysm, dissection, or arteriovenous malformation in the major intracranial arteries. Negative orthostatic hypotension Due to persistent dizziness, MRI brain done 07/13/22 showed cerebella stroke Start ASA 81mg daily Patient is already on simvastatin 20mg HS. Considering patient >75year old, will defer high intensity statin at this time and continue simvastatin Continue Losartan increased to 100 mg today Continue Amlodipine increased to 10 mg daily Hydralazine as needed as needed Meclizine as needed PT for Florencio's was negative Will need follow-up with ophthalmology upon discharge Get TTE HbA1c 5.8 Constipation Continue bowel regimen Encouraged to ambulate (4) UTI (urinary tract infection), uncomplicated: Plan: Urinary tract infection Urine culture--E.Coli Was on ceftriaxone now transitioned to cefdinir to complete the course (5) Hypokalemia: Plan: Repleted (6) History of cataract surgery: Plan: Recent cataract surgery. Continue eye drops QID (7) Hypothyroidism: Plan: Continue levothyroxine (8) Hyperlipidemia: Plan: Continue statin (9) Sleep apnea: Plan: Does not use CPAP at home DVT Px: SQ Lovenox Code status: FULL CODE Disposition CM working on rehab Admission and Anticipated Discharge Date Admission Date: July 09, 2022 Subjective Patient seen and examined. Reports dizziness usually worse on standing and walking has improved Denies any headache. Denies any focal weakness or sensory deficit. Denies any nausea, vomiting Denies any chest pain, cough, shortness of breath Denies any abdominal pain, diarrhea. Reports constipation. Physical Exam Constitutional: + well hydrated; no acute distress Eyes: PERRL, conjunctivae normal, anicteric sclerae ENMT: external ear and nose normal, oropharynx normal Respiratory: normal respiratory effort, lungs clear to auscultation Cardiovascular: Rate/Rhythm: regular rate and regular rhythm S1 S2 Gastrointestinal (Abdomen): normal bowel sounds, soft, nontender, no hepatosplenomegaly Musculoskeletal: no cyanosis or clubbing, extremities motor strength 5/5 Neurologic: PERRL, EOMI, accommodation nl, no face palsy, no dysarthria Psychiatric: A+Ox3, euthymic affect Results & Data Results & Data Vital Signs (Past 12 Hours) Vital Signs Temp Pulse Pulse Resp BP BP Pulse Ox 07/14/22 11:13 36.4 C L 67 19 136/72 95 07/14/22 07:58 07/14/22 07:24 36.3 C L 63 20 122/77 97 07/14/22 07:20 56 L 07/14/22 04:03 36.7 C 54 L 16 141/82 H 95 O2 Del Method 07/14/22 11:13 Room Air 07/14/22 07:58 Room Air 07/14/22 07:24 Room Air 07/14/22 07:20 07/14/22 04:03 Room Air Laboratory Results Abnormal lab results 07/14/22 07/14/22 Range/Units 05:39 05:39 BUN 25 H (6-23) mg/dl BUN/Creatinine Ratio 29.8 H (10-20) Hemoglobin A1c 5.8 H (4.5-5.6) %
--- NOTE | 2022-07-14 14:24 | Pharmacy Report ---
- Date of Service July 14, 2022 - Pharmacy CVA/TIA Medication Review Medications to Prevent Stroke handout has been added to the patients discharge packet. Antiplatelet(s) * Aspirin 81 mg PO daily Cholesterol * Simvastatin 20 mg PO HS * High intensity statin deferred due to age >75. DVT Prophylaxis * Enoxaparin SQ Therapeutic Anticoagulation * No history of Afib/Aflutter noted Type 2 Diabetes * Patient does not have T2DM
[2022-07-14] MEDS ORDERED: PHARMACIST DISCHARGE MED REC CONSULT ONE (14:30)
[2022-07-14] MEDS ORDERED: PHARMACIST DISCHARGE MED REC CONSULT SCH (14:30)
[2022-07-14] MEDS: ENOXAPARIN INJ 40 MG/0.4 ML SYR SQ SCH (16:59)
[2022-07-14] MEDS: bisacodyL 5 MG TABEC PO PRN (18:47)
[2022-07-14] MEDS: SIMVASTATIN 20 MG TAB PO SCH (20:55)
[2022-07-15 06:33] LABS: Hematocrit (blood only) 42.9 % (37.0-47.0); Hemoglobin 14.7 g/dl (12.0-16.0); Mean Corpuscular Hemoglobin 32.6 pg (25.0-34.0); Mean Corpuscular Hgb Conc 34.3 g/dL (32.0-36.0); Mean Corpuscular Volume 95.1 fL (80.0-100.0); Mean Platelet Volume 11.5 fL (9.4-12.4); Platelet Count 220 K/uL (130-400); RDW Coefficient of Variation 12.3 % (11.5-14.5); RDW Standard Deviation 43.1 fL (36.4-46.3); Red Blood Count 4.51 M/uL (4.20-5.40); White Blood Count 10.41 K/ul (4.8-10.8)
[2022-07-15 06:51] LABS: BUN Creatinine Ratio 32.9 (10-20); Calcium 9.1 mg/dl (8.6-10.3); Creatinine Clr Calc Pharmacy 71.1 ml/min; Est GFR (African American) 88.3 ml/min; Est GFR (Non-African American) 76.2 ml/min; Potassium 3.5 mmol/L (3.5-5.1)
[2022-07-15] MEDS: hydroCHLOROthiazide 25 MG TAB PO SCH (09:04)
[2022-07-15] MEDS: LOSARTAN POTASSIUM 50 MG TAB PO SCH (09:04)
[2022-07-15] MEDS: LEVOTHYROXINE SODIUM 137 MCG TABLET PO SCH (09:04)
[2022-07-15] MEDS: ASPIRIN 81 MG ECTAB PO SCH (09:04)
[2022-07-15] MEDS: DOCUSATE SODIUM/SENNA 50/8.6MG TAB PO SCH ×2 (09:04→20:17)
[2022-07-15] MEDS: POLYETHYLENE (MIRALAX) 17 GM PACK PO SCH (09:04)
[2022-07-15] MEDS: amLODIPine BESYLATE 5 MG TAB PO SCH (09:04)
[2022-07-15] MEDS: CEFDINIR 300 MG CAP PO SCH ×2 (09:04→20:16)
[2022-07-15] MEDS: MULTIVITAMIN TAB PO SCH (09:04)
[2022-07-15] MEDS: prednisoLONE acetate 1% OP SUSP 5 ML BTL OPB SCH ×4 (09:05→20:19)
[2022-07-15] MEDS: OFLOXACIN 0.3% 75 DROPS/5 ML BTL OPR SCH ×4 (09:06→20:18)
--- NOTE | 2022-07-15 09:35 | Neurology Progress Note ---
Date of Service July 15, 2022 Assessment & Plan (1) Cerebellar stroke, acute: (2) Vertigo due to acute cerebrovascular disease: (3) Hypertensive urgency: Plan patient had the acute onset of vertigo, balance problems with some nausea and vomiting July 08. This is likely when her cerebellar stroke initiated. It is now 1 week later and she has improved vertigo and balance compared to admission. MRI of the brain showed rather significant right cerebellar hemispheric stroke with some mild swelling / mass effect. Although much improved, the patient still has positional vertiginous symptoms, helped with meclizine. she has balance issues needing a walker or person for support. She does not have any limb ataxia. This is a gait ataxia. She had significant hypertension on admission and the stroke was likely due to hypertensive small vessel ischemic disease. blood pressure is much improved in the 150s over 70s range. Although there is some swelling/edema with this stroke it is minimal and likely improving now ( she is past danger of increased swelling from the stroke ). Recommendations: 1. Continue 81 mg aspirin tablet daily. 2. Maintain blood pressure control as you are doing, aiming for a mean arterial pressure of 95-100. 3. Consider echocardiogram, if not already done, but this can be done as an outpatient. 5. Continue with physical and occupational therapy. She is an excellent rehabilitation hospital candidate. I have spoken with her case managers to see if we can get [facility] in [facility] the soon as we can. Overall, I spent a total of 35 minutes with this case including review of records, direct evaluation the patient at bedside, report generation, and discussion of the case with the patient at bedside, RN, and Dr. Díaz, including differential diagnosis and treatment options. Admission and Anticipated Discharge Date Admission Date: July 09, 2022 Subjective Patient believe she is better today compared to yesterday. She is having less dizziness /vertigo. She has no nausea or vomiting. She is able to move better without symptoms. Her balance is still a little bit off and she feels more comfortable with the walker. She denies any pain, weakness, numbness, or control issues with her limbs. Her vision is stable. Her speech and mentation are normal as well. Blood pressure is 153/78 and hemoglobin A1c was 5.8. Total cholesterol was 165 and triglycerides 96. Results & Data Vital Signs (Past 12 Hours) Vital Signs Temp Pulse Pulse Resp BP Pulse Ox O2 Del Method 07/15/22 07:30 36.3 C L 56 L 20 153/78 H 98 Room Air 07/15/22 04:30 36.3 C L 53 L 18 145/81 H 95 Room Air 07/15/22 00:00 57 L 07/14/22 23:56 36.5 C 59 L 18 119/69 96 Room Air Exam (Neuro) Physical Exam: She is awake and alert. Speech is without aphasia or dysarthria. Mood and affect seem normal appropriate. Thought processes are intact conversation. Extraocular eye muscles are intact without nystagmus. She has no facial droop and tongue is midline. Coordination is normal in the arms without tremor or ataxia. Strength seems symmetrical. She had normal stance sitting in the chair. PG Care Time/CCT Total # of Minutes Spent Total Time Spent with Patient: Total time spent is greater than 50% in coordination of care (as documented) at patient's floor/unit and/or counseling patient: Coding Level of Care Code 18258 SUB INP/OBS CARE 2/35MIN Diagnoses Cerebellar stroke, acute I63.9 Vertigo due to acute cerebrovascular disease I67.89; R42 Hypertensive urgency I16.0 Time Spent (min) 35
[2022-07-15] MEDS ORDERED: bisacodyL 10 MG SUPP PR STA (15:32)
[2022-07-15] MEDS ORDERED: MAGNESIUM CITRATE 296 ML/BTL PO ONE (16:00)
[2022-07-15] MEDS: ENOXAPARIN INJ 40 MG/0.4 ML SYR SQ SCH (16:02)
--- NOTE | 2022-07-15 17:49 | Hospitalist Progress Note ---
Date of Service July 15, 2022 Assessment & Plan (1) Cerebellar stroke, acute: (2) Hypertensive urgency: (3) Dizziness: Plan: 81 yr old female with H/O Hypertension, insomnia, prediabetes, hypothyroidism, hyperlipidemia and LEON who presents with nausea and dizziness x3 days. Starting on Tuesday, patient felt nauseated and generally weak as well as dizziness and was found to have hypertensive urgency and UTI. Hypertensive urgency --Head/Neck CTA:No acute intracranial hemorrhage, evidence of acute territorial infarction, or other acute intracranial disease process. No occlusion, hemodynamically significant stenosis, or dissection in the major cervical arteries. No occlusion, hemodynamically significant stenosis, aneurysm, dissection, or arteriovenous malformation in the major intracranial arteries. Negative orthostatic hypotension Due to persistent dizziness, MRI brain done 07/13/22 showed cerebella stroke Continue ASA 81mg daily Patient is already on simvastatin 20mg HS. Considering patient >75year old, will defer high intensity statin at this time and continue simvastatin Continue Losartan increased to 100 mg Continue Amlodipine increased to 10 mg daily Hydralazine as needed as needed Meclizine as needed PT for Florencio's was negative Will need follow-up with ophthalmology upon discharge Awaiting TTE HbA1c 5.8 Constipation Patient will like more laxatives Continue current regimen LA dulcolax and mag citrate x1 ordered (4) UTI (urinary tract infection), uncomplicated: Plan: Urinary tract infection Urine culture--E.Coli Was on ceftriaxone now transitioned to cefdinir to complete the course (5) Hypokalemia: Plan: Repleted (6) History of cataract surgery: Plan: Recent cataract surgery. Continue eye drops QID (7) Hypothyroidism: Plan: Continue levothyroxine (8) Hyperlipidemia: Plan: Continue statin (9) Sleep apnea: Plan: Does not use CPAP at home DVT Px: SQ Lovenox Code status: FULL CODE Disposition Awaiting rehab I spent a total of 35 minutes coordinating, documenting and providing care for this patient excluding time spent in performance of separately billed services Admission and Anticipated Discharge Date Admission Date: July 09, 2022 Subjective Patient seen and examined. Reports dizziness continues to improve Denies any headache, focal weakness or sensory deficit. Denies any nausea, vomiting Denies any chest pain, cough, shortness of breath Denies any abdominal pain, diarrhea. Still reports constipation. Physical Exam Constitutional: + well hydrated; no acute distress Eyes: PERRL, conjunctivae normal, anicteric sclerae ENMT: external ear and nose normal, oropharynx normal Respiratory: normal respiratory effort, lungs clear to auscultation Cardiovascular: Rate/Rhythm: regular rate and regular rhythm S1 S2 Gastrointestinal (Abdomen): normal bowel sounds, soft, nontender, no hepatosplenomegaly Musculoskeletal: no cyanosis or clubbing, extremities motor strength 5/5 Neurologic: PERRL, EOMI, accommodation nl, no face palsy, no dysarthria Psychiatric: A+Ox3, euthymic affect Results & Data Results & Data Vital Signs (Past 12 Hours) Vital Signs Temp Pulse Resp BP Pulse Ox O2 Del Method 07/15/22 15:26 36.4 C L 54 L 19 148/74 H 97 Room Air 07/15/22 11:04 36.4 C L 70 19 144/86 H 93 Room Air 07/15/22 07:30 36.3 C L 56 L 20 153/78 H 98 Room Air Laboratory Results Abnormal lab results 07/15/22 Range/Units 05:27 BUN 24 H (6-23) mg/dl BUN/Creatinine Ratio 32.9 H (10-20)
[2022-07-15] MEDS ORDERED: LORazepam 0.5 MG TAB PO STA (19:45)
[2022-07-15] MEDS ORDERED: ACETAMINOPHEN 1,000 MG/100 ML VIAL IV STA (19:46)
[2022-07-15] MEDS ORDERED: DICYCLOMINE HCL 10 MG CAP PO ONE (19:47)
[2022-07-15] MEDS: bisacodyL 5 MG TABEC PO PRN (19:52)
[2022-07-15] MEDS: SIMVASTATIN 20 MG TAB PO SCH (20:17)
[2022-07-16] MEDS ORDERED: ZOLPIDEM TARTRATE 5 MG TAB PO STA (00:06)
[2022-07-16] MEDS: DOCUSATE SODIUM/SENNA 50/8.6MG TAB PO SCH (09:14)
[2022-07-16] MEDS: hydrALAZINE 10 MG TAB PO PRN (09:14)
[2022-07-16] MEDS: hydroCHLOROthiazide 25 MG TAB PO SCH (09:15)
[2022-07-16] MEDS: CEFDINIR 300 MG CAP PO SCH (09:15)
[2022-07-16] MEDS: ASPIRIN 81 MG ECTAB PO SCH (09:15)
[2022-07-16] MEDS: MULTIVITAMIN TAB PO SCH (09:16)
[2022-07-16] MEDS: LEVOTHYROXINE SODIUM 137 MCG TABLET PO SCH (09:17)
[2022-07-16] MEDS: LOSARTAN POTASSIUM 50 MG TAB PO SCH (09:17)
[2022-07-16] MEDS: amLODIPine BESYLATE 5 MG TAB PO SCH (09:18)
[2022-07-16] MEDS: POLYETHYLENE (MIRALAX) 17 GM PACK PO SCH (09:22)
[2022-07-16] MEDS: prednisoLONE acetate 1% OP SUSP 5 ML BTL OPB SCH ×3 (09:22→16:54)
[2022-07-16] MEDS: OFLOXACIN 0.3% 75 DROPS/5 ML BTL OPR SCH (09:23)
--- NOTE | 2022-07-16 13:58 | Hospitalist Progress Note ---
Date of Service July 16, 2022 Assessment & Plan Admission and Anticipated Discharge Date Admission Date: July 09, 2022 Results & Data Results & Data Vital Signs (Past 12 Hours) Vital Signs Temp Pulse Pulse Pulse Resp BP Pulse Ox 07/16/22 08:00 58 L 07/16/22 11:36 36.5 C 70 16 127/79 94 07/16/22 09:12 67 07/16/22 08:00 36.5 C 56 L 18 151/79 H 96 07/16/22 05:21 36.3 C L 61 18 160/79 H 98 O2 Del Method 07/16/22 08:00 07/16/22 11:36 Room Air 07/16/22 09:12 07/16/22 08:00 Room Air 07/16/22 05:21 Room Air
[2022-07-16] MEDS ORDERED: STROKE PATIENT DISCHARGE STA (16:08)
--- NOTE | 2022-07-16 16:09 | Discharge Summary ---
Date of Service July 16, 2022 Admission HPI Per Admitting Provider This is an 81-year-old female with PMH of hypertension, insomnia, prediabetes, hypothyroidism, hyperlipidemia and LEON who presents with nausea and dizziness x3 days. Starting on Tuesday, patient felt nauseated and generally weak as well as dizziness. Had R cataract surgery Tuesday AM and felt the same. Vomiting last evening multiple times and when she stands up the room is spinning, which is new for her. Vomited food contents, no blood. No fever, chills, CP, SOB, abdominal pain, diarrhea or constipation. Decreased PO intake 2/2 nausea. No difficulty urinating but more frequent, dysuria or hematuria. Has not taken home medications since yesterday morning. Is taking 2 eye drops for recent cataract surgeries (R 2 days ago and L last week). Admission Exam Per Admitting Provider General: Obese woman, no acute distress Eyes: PERRL, conjunctivae normal, not pale, anicteric sclerae, EOM intact bilaterally ENMT: External ear and nose normal, oropharynx normal Respiratory: Normal respiratory effort, no respiratory distress, lungs clear to auscultation, no crackles and no wheezes Cardiovascular: RRR S1 S2 Gastrointestinal (Abdomen): Abdomen is not distended, soft, non-tender to palpation, no guarding, no palpable hepatosplenomegaly, normal bowel sounds Musculoskeletal: +trace ankle edema Genitourinary: No CVA tenderness Neurologic: Alert and oriented x 3, No focal weakness, sensation grossly intact Psychiatric: Euthymic affect Principal Diagnosis Cerebellar stroke Poorly controlled hypertension Urinary tract infection Discharge Exam Constitutional + well hydrated; no acute distress Eyes PERRL, conjunctivae normal, anicteric sclerae ENMT external ear and nose normal, oropharynx normal Respiratory normal respiratory effort, lungs clear to auscultation Cardiovascular Rate/Rhythm: regular rate and regular rhythm S1 S2 Gastrointestinal (Abdomen) normal bowel sounds, soft, nontender, no hepatosplenomegaly Musculoskeletal no cyanosis or clubbing, extremities motor strength 5/5 Neurologic PERRL, EOMI, accommodation nl, no face palsy, no dysarthria Psychiatric A+Ox3, euthymic affect Discharge Data Allergies Allergy/AdvReac Type Severity Reaction Status Date / Time No Known Allergies Allergy Unknown Verified 07/07/22 06:14 Consultations 07/09/22 13:25 ED Decision to Admit Stat 07/14/22 09:10 Consult Neurology Routine Ordered Studies 07/09/22 11:32 CT angio neck with con Stat 07/09/22 11:42 CT angio head wo/w Stat 07/13/22 17:40 MRI Brain [MR brain wo/w con] Routine Hospital Course (1) Cerebellar stroke, acute: (2) Hypertensive urgency: (3) Dizziness: 81 yr old female with H/O Hypertension, insomnia, prediabetes, hypothyroidism, hyperlipidemia and LEON who presents with nausea and dizziness x3 days. Starting on Tuesday, patient felt nauseated and generally weak as well as dizziness and was found to have hypertensive urgency and UTI. --Head/Neck CTA:No acute intracranial hemorrhage, evidence of acute territorial infarction, or other acute intracranial disease process. No occlusion, hemodynamically significant stenosis, or dissection in the major cervical arteries. No occlusion, hemodynamically significant stenosis, aneurysm, dissection, or arteriovenous malformation in the major intracranial arteries. Negative orthostatic hypotension Due to persistent dizziness, MRI brain was done on 07/13/22 which showed right cerebella stroke She was started on ASA 81mg daily Patient is already on simvastatin 20mg HS. Considering patient >75year old, will defer high intensity statin at this time and continue simvastatin Losartan was increased to 100 mg Amlodipine was increased to 10 mg daily TTE done today. Awaiting result HbA1c 5.8 Was evaluated by Neurologist inpatient (4) UTI (urinary tract infection), uncomplicated: Urinary tract infection Urine culture--E.Coli Was on ceftriaxone now transitioned to cefdinir to complete the course (End date 07/17/22) (5) Hypokalemia: Repleted (6) History of cataract surgery: Recent cataract surgery. Continue eye drops QID Will need follow-up with ophthalmology upon discharge (7) Hypothyroidism: Continue levothyroxine (8) Hyperlipidemia: Continue statin (9) Sleep apnea: Does not use CPAP at home Discharged to [facility] for rehab Total Time Total Time Spent Total Time Spent (In Minutes): 45 Total Time Includes: Examination of the Patient, Discharge Planning and Medication Reconciliation Discharge Plan Discharge Items Patient Disposition: Transfer Inpatient Rehab Fac Reason For Visit: Dizziness Discharge Diagnosis: Cerebellar stroke Poorly controlled hypertension Urinary tract infection Activity: As commented below Activity Comment: Per Physical therapy Non-emergency contact: Primary Care Provider Call non-emergency contact if: you have any medication questions and your symptoms worsen Follow-up/Referrals: Joseph Iqbal MD [Primary Care Provider] - Diet: Heart Healthy Addtl Attending Provider Instructions: Mrs Mary You came to the hospital complaining of dizziness Your blood pressure was very elevated. Initial CT scans did not show a stroke. Despite BP control, your dizziness persisted. MRI brain showed right cerebellar stroke. You were started on aspirin 81mg daily. Please continue taking your simvastatin. Your losartan was increased to 100mg daily and your amlodipine increased to 10mg daily. Stop taking the ibuprofen for now. Please use tylenol as needed for pain. Ensure follow up with your Primary Doctor It was a pleasure taking care of you Pending Studies at Discharge: Yes (Echocardiogram) Stand-Alone Forms: My [facility] [employer], Medications to Prevent Stroke Skilled Items Patient informed of condition?: Yes DNR: No Discharge Level of Care: Acute rehab Communicable Disease: No Discharge Prognosis: Stable Lines: None Urinary Catheter: No Medications and DC Order Prescriptions: New aspirin 81 mg Tablet,Delayed Release (Dr/Ec) 81 mg PO QAM Qty: 30 0RF bisacodyl [Gentle Laxative (bisacodyl)] 5 mg Tablet,Delayed Release (Dr/Ec) 5 mg PO DAILY PRN (Reason: constipation) Qty: 30 0RF cefdinir 300 mg Capsule 300 mg PO BID Qty: 2 0RF Continued simvastatin 20 mg Tablet 20 mg PO HS hydrochlorothiazide 25 mg Tablet 25 mg PO QAM biotin 1 mg Tablet 1 mg PO QAM multivitamin Tablet 1 tab PO QAM Quercetin Complex 500-250-33 mg Capsule 1 cap PO QAM zolpidem 5 mg tablet 5 mg PO HS MDD insomnia prednisolone acetate 1 % drops,suspension 1 drp QID levothyroxine 137 mcg Tablet 137 mcg PO QAM Qty: 30 0RF Changed losartan 50 mg Tablet 100 mg PO QAM Qty: 60 0RF amlodipine 5 mg Tablet 10 mg PO QAM Qty: 60 0RF Discontinued Ibuprofen PM 200-25 mg Capsule 2 cap PO HS PRN (Reason: Insomnia) ofloxacin 0.3 % drops 1 drp OPR QID Discharge Orders: Discharge Order (Routine); Ordered 07/16/22 Ordered By: Kaycee Renee/Other Patient Handouts: Symptoms of Stroke Admission Data Admit Date/Time: 07/09/22 13:43 Attending Provider: Kaycee Díaz I. Admit Provider: Kaycee Díaz I. Primary Care Provider: Joseph Iqbal Other Providers: Kaycee Díaz I. ; [facility] ; Kerwin Casillas ; Leandro Valencia Other Interventions: Discharge Summary Assessment (RN) Last Done: 07/16/22 16:31
[2022-07-16] MEDS: ENOXAPARIN INJ 40 MG/0.4 ML SYR SQ SCH (16:53)
== END 2022-07-16 17:47 | DRG 988 ==
LOC: ED 11:22 → SUATTDRO 13:43 → 4W 13:43